=== PATIENT | female | born 1990 | race Caucasian/White ===

== ENCOUNTER → 2017-01-06 | Outpatient (REF) | payer OTHER ==
[~2017-01-06] MED LIST: /MOM400 PO; ACET50TA PO; AMPI500C OR; ANUS2.5C2 TOP; COLA50CA3 PO; FIORICET OR; IBUP600T26 PO; IBUP800T23 PO; LABE5INJ PO; PRENTAB9 PO; PROZ20CA OR; TRAZ100T OR; TYLE325T5 PO; ZOLO50TA OR
== END ==
LOC: M LAB REF 12:34
PROVIDERS: ATTEND Physician Assistant
DX: F50.9 Eating disorder, unspecified (principal); R53.1 Weakness

== ENCOUNTER → 2017-07-25 | Outpatient (REF) | payer OTHER ==
[~2017-07-25] MED LIST changes: +IBUP1TAB7 PO; -IBUP800T23 PO; +PROZ40CA PO
[2017-07-25 20:10] LABS: ANION GAP 5 MEQ/L (8-16); BLOOD UREA NITROGEN 14 MG/DL (7-18); CALCIUM LEVEL 9.3 MG/DL (8.5-10.1); CARBON DIOXIDE LEVEL 27 MEQ/L (21-32); CHLORIDE LEVEL 110 MEQ/L (98-107); CHOLESTEROL LEVEL 185 MG/DL (<200); CREATININE FOR GFR 0.75 MG/DL (0.55-1.02); GLOMERULAR FILTRATION RATE > 60.0 (>60); GLUCOSE, FASTING 89 MG/DL (70-105); POTASSIUM SERUM 4.1 MEQ/L (3.5-5.1); SODIUM LEVEL 142 MEQ/L (136-145); TRIGLYCERIDES LEVEL 121 MG/DL (<150)
== END ==
LOC: M SFHCPLAZ 15:32
PROVIDERS: ATTEND Family Medicine
DX: Z82.49 Family history of ischemic heart disease and other diseases of the circulatory system (principal); R03.0 Elevated blood-pressure reading, without diagnosis of hypertension

== ENCOUNTER → 2018-05-25 | Outpatient (CLI) | payer OTHER ==
[2018-05-25 12:33] LABS: ERYTHROCYTE SEDIMENTATION RATE 73 mm/hr (0-20)
[2018-05-26 14:14] LABS: ANGIOTENSIN 1 CONVERTING ENZYM 15 U/L (14-82); ANTI DOUBLE STRAND-DNA AB 2 IU/mL (0-9); ANTINUCLEAR ANTIBODIES DIRECT Negative (Negative)
== END ==
LOC: M LAB 10:44
DX: L98.9 Disorder of the skin and subcutaneous tissue, unspecified (principal)
CPT/HCPCS: 71046

== ENCOUNTER → 2020-06-12 | Outpatient (CLI) | payer OTHER, MEDICAID ==
[~2020-06-12] MED LIST changes: -/MOM400 PO; -ACET50TA PO; +MAPA500T17 PO; +MILK10SU PO
--- NOTE | 2020-06-18 07:25 | REPPI ---
LUMBAR SPINE SERIES: 5-VIEWS HISTORY: No known injury. Lumbar back pain. COMPARISON RADIOGRAPHS: None. FINDINGS: Lumbar vertebral body heights are preserved. Alignment is normal. There is mild disc space narrowing at L4-5. Other disc spaces are maintained. There is no evidence of spondylolysis or spondylolisthesis. Pedicles and posterior elements are intact. Facets are normally aligned. Psoas margins are symmetric. There are surgical sutures in the right lower quadrant. Sacrum and sacroiliac (SI) joints are intact. IMPRESSION: Mild disc space narrowing at L4-5. Otherwise negative lumbar spine radiographs. MTDD
== END ==
LOC: M PLAIMG 15:01
PROVIDERS: ATTEND Physician Assistant
DX: M54.42 Lumbago with sciatica, left side (principal)

== ENCOUNTER → 2020-07-18 | Outpatient (CLI) | payer OTHER ==
--- NOTE | 2020-07-18 15:44 | REP ---
INDICATION: OTH CHRONIC PAIN. COMPARISON: Comparison lumbar spine radiographs June 12, 2020.. TECHNIQUE: Sagittal and axial T1 and T2-weighted scans are acquired in the usual fashion with and without fat saturation. Sequences include spin echo, turbo spin-echo, and STIR imaging sequences. FINDINGS: There is straightening of the normal lumbar lordosis. Cortical and medullary bone signal intensity are preserved. Vertebral body heights are preserved. The tip of the conus medullaris is normal in position and appearance at L1. No extra vertebral abnormality is observed. The L1-2 and L2-3 disc levels are unremarkable. No disc protrusion, central canal stenosis, or foraminal narrowing is seen. At L3-4, there is mild degenerative disc space narrowing. Minimal diffuse disc bulging is present along its posterior margin. No spinal stenosis is seen. No neural foraminal narrowing is seen. At L4-5, there is mild degenerative narrowing and diffuse disc bulging. Facet hypertrophy and mild ligamentum flavum hypertrophy are noted. Canal size is borderline at L4-5. No focal disc protrusion is seen. Midline AP dimension of the thecal sac at L4-5 is 13 mm. There is no evidence of spondylolysis or spondylolisthesis. At L5-S1, there is minimal central disc bulging. Mild facet hypertrophy is present. No other abnormality. IMPRESSION: Mild disc bulging at L4-5 and L5-S1 with degenerative narrowing of the lower 3 lumbar discs. Facet hypertrophy at L4-5 and L5-S1. No orin spinal stenosis or foraminal narrowing is seen. No focal disc protrusion is appreciated. There is some straightening. <Electronically signed by Humberto Caldwell > 07/18/20 0104
== END ==
LOC: M PLARAD 13:30
PROVIDERS: ATTEND Physician Assistant
DX: M51.26 Other intervertebral disc displacement, lumbar region (principal); G89.29 Other chronic pain

== ENCOUNTER → 2020-07-31 | Outpatient (CLI) | payer OTHER ==
--- NOTE | 2020-08-02 00:34 | ECWPNPC ---
PATIENT NAME: RAYRAY CAMPO : 1990 GENDER: FEMALE VISIT DATE: 07/31/2020 DISCHARGE DATE: 07/31/20905 VISIT LOCKED DATE TIME: PHYSICIAN: NATALEE RAWLS PHYSICIAN PAGER NO: ACTIVE RESOURCE: NATALEE RAWLS REASON FOR APPOINTMENT 1. LOW BACK HISTORY OF PRESENT ILLNESS DEPRESSION SCREENING: PHQ-9 LITTLE INTEREST OR PLEASURE IN DOING THINGSMORE THAN HALF THE DAYS FEELING DOWN, DEPRESSED, OR HOPELESSMORE THAN HALF THE DAYS TROUBLE FALLING OR STAYING ASLEEP, OR SLEEPING TOO MUCHSEVERAL DAYS FEELING TIRED OR HAVING LITTLE ENERGYMORE THAN HALF THE DAYS POOR APPETITE OR OVEREATING SEVERAL DAYS FEELING BAD ABOUT YOURSELF-OR THAT YOU ARE A FAILURE OR HAVE LET YOURSELF OR YOUR FAMILY DOWN SEVERAL DAYS TROUBLE CONCENTRATING ON THINGS, SUCH READING THE NEWSPAPER OR WATCHING TELEVISION SEVERAL DAYS MOVING OR SPEAKING SO SLOWLY THAT OTHER PEOPLE COULD HAVE NOTICED. OR THE OPPOSITE- BEING SO FIDGETY OR RESTLESS THAT YOU HAVE BEEN MOVING AROUND A LOT MORE THAN USUALNOT AT ALL THOUGHTS THAT YOU WOULD BE BETTER OFF , OR OF HURTING YOURSELF IN SOME WAY?NOT AT ALL TOTAL SCORE:10 INTERPRETATIONMODERATE DEPRESSION PHQ-2 (2015 EDITION) LITTLE INTEREST OR PLEASURE IN DOING THINGS?MORE THAN HALF THE DAYS FEELING DOWN, DEPRESSED, OR HOPELESS?MORE THAN HALF THE DAYS TOTAL SCORE4 GENERAL: 30-YEAR-OLD FEMALE REFERRED BY [facility] TO EVALUATE CHRONIC LOW BACK PAIN. STATES LOW BACK PAIN BEGAN WITH APPROXIMATELY 6 YEARS AGO. SHE DIDN'T SEEK MEDICAL ATTENTION UNTIL 1 YEAR AGO. SHE WAS STARTED ON GABAPENTIN 600 MG 3 TIMES A DAY AND THIS WAS HELPFUL INITIALLY. CONTINUES ON GABAPENTIN 600 MG 3 TIMES A DAY BUT FEELS IT IS NOT HELPING ANYMORE. CURRENTLY HAVING MEDICATION ADJUSTMENTS FOR ANXIETY AND DEPRESSION WITH PRIMARY CARE. DENIES SUICIDAL IDEATIONS. HAS MULTIPLE SCABBED RED PAPULES ON HER FACE AND TRUNK AND PRIMARY CARE IS ACTIVELY TREATING THIS. PAIN IS LOCATED ACROSS LOW BACK. PAIN IS AGGRAVATED WITH WALKING OR STANDING. REPORTS NIGHTTIME AWAKENINGS DUE TO LOW BACK PAIN WHEN SHE REPOSITIONS. DENIES BOWEL OR BLADDER INCONTINENCE. STATES LEGS FEEL VERY HEAVY IF SHE IS WALKING. STATES SHE DOES NOT WANT NARCOTIC PAIN MEDICATIONS SHE HAS A HISTORY OF OPIATE ABUSE IN THE PAST. REVIEWED MRI OF THE LS-SPINE AND DISCUSSED TREATMENT OPTIONS. DUE TO THE FACT THAT SHE HAS MULTIPLE RED RAISED/SCABBED LESIONS ON HER LOWER BACK ,INJECTION THERAPY WOULD NOT BE POSSIBLE. DISCUSSED WALKING PROGRAM TO IMPROVE ACTIVITY TOLERANCE AND TO REDUCE STRESS. PATIENT SEEMS VERY MOTIVATED TO GET BETTER.- - -. FALL RISK SCREENING: SCREENING :ONE FALL WITH INJURY IN THE PAST YEAR SCRAPPED KNEE DID NOT SEEK MEDICAL ATTENTION. PAIN SCREENING: PATIENT HAS A COMPLAINT OF ACUTE OR CHRONIC PAIN :YES LOCATION OF PAIN: LOW BACK, BILATERAL LEGS INTENSITY OF PAIN (SCALE OF 1 TO 10):7 WHAT DOES YOUR PAIN FEEL LIKE:STABBING, ACHING DURATION:CONTINOUS, AWAKENS FROM SLEEP PAIN IS INCREASED BY:ACTIVITIES, PROLONGED STANDING PLAN/GOALS/TREATMENT/INTERVENTION/FOLLOW UP:SEE PLAN NURSING NOTE: - - -. PAIN CENTER INTAKE QUESTIONS: DO YOU HAVE A HISTORY OF MRSA? :NO DO YOU TAKE A BLOOD THINNERS? :NO DO YOU HAVE ANY BLEEDING DISORDERS? :NO ANY NEW NUMBNESS OR WEAKNESS IN YOUR LEGS OR ARMS? :YES BILATERAL LEGS REPORTED NUMBNESS AN FEELING OF HEAVINESS. ANY PACEMAKER,DEFIBRILLATOR, OR DORSAL COLUMN STIMULATOR? :NO DO YOU HAVE ANY RASHES OR OPEN SORES? :YES PICKING RELATED TO OCD ARE YOU ALLERGIC TO IV DYE? :NO ARE YOU DIABETIC? :NO ANY NEW PROBLEMS WITH YOUR MEDICATIONS? :NO HAVE YOU RECEIVED A VACCINE IN THE PAST 30 DAYS? :NO DO YOU PLAN TO RECEIVE A VACCINE IN THE NEXT 21 DAYS? :NO DO YOU NEED ANY PRESCRIPTION? :NO DO YOU TAKE ANY IMMUNOSUPPRESSIVE MEDICATIONS? :NO CURRENT MEDICATIONS TAKING IMITREX 25 MG TABLET 1 TABLET AT LEAST 2 HOURS BETWEEN DOSES NEEDED ORALLY TWICE A DAY TAKING VENTOLIN HFA 108 (90 BASE) MCG/ACT AEROSOL SOLUTION 2 PUFFS NEEDED INHALATION EVERY 6 HRS TAKING IBUPROFEN 600 MG TABLET 1 TABLET WITH FOOD OR MILK NEEDED ORALLY THREE TIMES DAILY NEEDED TAKING FLUVOXAMINE MALEATE 100 MG TABLET 1 TABLET AT BEDTIME ORALLY TWICE DAILY TAKING GABAPENTIN 600 MG TABLET 1 CAPSULE ORALLY THREE TIMES DAILY TAKING MELOXICAM 10 MG CAPSULE 1 TABLET ORALLY TWICE DAILY NEEDED TAKING BUSPIRONE HCL 10 MG TABLET 1 TABLET ORALLY TWICE A DAY NEEDED TAKING MECLIZINE HCL 25 MG TABLET 1 TABLET NEEDED ORALLY ONCE A DAY TAKING WELLBUTRIN XL 150 MG TABLET EXTENDED RELEASE 24 HOUR 1 TABLET IN THE MORNING ORALLY ONCE A DAY TAKING XANAX 0.25 MG TABLET 1 TABLET ORALLY TWICE A DAY NEEDED PRIOR TO MRI (MDD: 2) NOT-TAKING CEPHALEXIN 500 MG CAPSULE 1 CAPSULE ORALLY EVERY 12 HRS NOT-TAKING CIPRODEX 0.3-0.1 % SUSPENSION 4 DROPS INTO AFFECTED EAR OTIC TWICE A DAY NOT-TAKING CLONAZEPAM 0.5 MG TABLET 1 TABLET ORALLY TWICE A DAY NEEDED FOR PANIC ATTACKS NOT-TAKING DIFLUCAN 150 MG TABLET 1 TABLET ORALLY ONE TIME, MAY REPEAT IN 3 DAYS NOT-TAKING TIZANIDINE HCL 2 MG CAPSULE 1 TABLET NEEDED ORALLY THREE TIMES A DAY NOT-TAKING FLUTICASONE PROPIONATE 50 MCG/ACT SUSPENSION 1 SPRAY IN EACH NOSTRIL NASALLY BID NOT-TAKING FLUVOXAMINE MALEATE ER 100 MG CAPSULE EXTENDED RELEASE 24 HOUR 1 CAPSULE AT BEDTIME ORALLY ONCE A DAY NOT-TAKING FLUCONAZOLE 150 MG TABLET 1 TABLET ORALLY ONE DOSE NOT-TAKING ZYRTEC ALLERGY 10 MG CAPSULE 1 CAPSULE ORALLY ONCE A DAY NOT-TAKING AMOXICILLIN-POT CLAVULANATE 875-125 MG TABLET 1 TABLET ORALLY EVERY 12 HRS NOT-TAKING FLUVOXAMINE MALEATE 50 MG TABLET 1 TABLET AT BEDTIME (WITH 100MG FOR TOTAL OF 150MG) ORALLY ONCE A DAY MEDICATION LIST REVIEWED AND RECONCILED WITH THE PATIENT PAST MEDICAL HISTORY DEPRESSION SMOKER, UNMOTIVATED TO QUIT ANXIETY ALLERGIES ENVIRONMENTAL SURGICAL HISTORY APPENDECTOMY 2009 EXPLORATORY LAPAROTOMY; EVAL FOR FERTILITY 2009 TONSILS AND ADENOIDS CHILD FAMILY HISTORY FATHER: , COPD, OF PERFORATED COLON MOTHER: ALIVE, CAD, COPD, RHEUMATOID ARTHRITIS, DIAGNOSED WITH UNSPECIFIED HEART DISEASE MATERNAL GRAND FATHER: , OF [place], THROAT AND LUNG CA MATERNAL GRAND MOTHER: , OF [place]- BONE CANCER BROTHER: , HALF BROTHER- HIV/AIDS, FROM [place] SISTER: ALIVE, UNKNOWN 3 BROTHER(S) , 2 SISTER(S) . 1 SON(S) , 1 DAUGHTER(S) - HEALTHY. DENIES ANY SKIN CANCER HX \\N\\NMATERNAL COUSIN- LUPUS\\N\\N1 STILL 2011. SOCIAL HISTORY GENERAL: TOBACCO USE ARE YOU A:CURRENT SMOKER ARE YOU INTERESTED IN QUITTING?THINKING ABOUT QUITTING ARRANGEREFERRAL FAXED TO [facility] SMOKER'S QUITLINE (REFER TO QUIT PROGRAM) HOW MANY CIGARETTES A DAY DO YOU SMOKE?6-10 HOW SOON AFTER YOU WAKE UP DO YOU SMOKE YOUR FIRST CIGARETTE?6-30 MIN HOW OFTEN DO YOU SMOKE CIGARETTES?EVERY DAY PATIENT COUNSELED ON THE DANGERS OF TOBACCO USE AND URGED TO QUIT:07/31/2020 SMOKING CESSATION INFORMATION GIVEN07/31/2020 VAPORNO E-CIGARETTENO LATEX QUESTIONNAIRE LATEX ALLERGY : HAVE YOU EVER DEVELOPED ANY TYPE OF REACTION AFTER HANDLING LATEX PRODUCTS SUCH RUBBER GLOVES, CONDOMS, DIAPHRAGMS, BALLOONS, SOCKS, OR UNDERWEAR?NO LATEX ALLERGY : HAVE YOU EVER DEVELOPED ANY TYPE OF REACTION DURING OR AFTER DENTAL APPOINTMENT, VAGINAL/RECTAL EXAMINATION, SURGICAL PROCEDURE, OR ANY OTHER EXPOSURE?NO DATE ASKED : 11/30/2018 LATEX RISK : HAVE YOU EVER HAD ANY DIFFICULTY BREATHING OR HIVES AFTER EATING OR HANDLING ANY FRUITS, OR VEGETABLES; SUCH KIWI, BANANAS, STONE FRUITS, OR CHESTNUTSNO LATEX RISK : DO YOU HAVE A PREVIOUS PERSONAL HISTORY OF MORE THAN NINE SURGERIES, SPINA BIFIDA, OR REPEATED CATHERIZATIONS? NO LATEX RISK : ARE YOU FREQUENTLY EXPOSED TO LATEX PRODUCTS IN YOUR OCCUPATION?NO ALCOHOL SCREENING DID YOU HAVE A DRINK CONTAINING ALCOHOL IN THE PAST YEAR?NO POINTS0 INTERPRETATIONNEGATIVE RECREATIONAL DRUG USE DRUG USE?YES CAFFEINE CAFFEINE USE?YES 3 CANS OF SODA/DAY SEXUAL HX HAD SEX IN THE LAST 12 MONTHS (VAGINAL, ORAL, OR ANAL)?YES WITHMEN ONLY USE PROTECTION?NO LMP:07/13/2015 HAVE YOU EVER HAD AN STD?YES CHLAMYDIA?YES HIV / HEP-C SCREENING HIV TEST OFFERED TO PATIENT:YES DATE OFFERED:07/25/2017 TEST ACCEPTED:YES TENRIISM TENRIISM NO RESTORATIONISM BELIEFS THAT WOULD IMPACT HEALTH CARE. LANGUAGE LANGUAGES SPOKEN:ANGUILLAN EDUCATION LEVEL OF EDUCATION:NOT FINISHED HIGH SCHOOL 11TH GRADE LEARNING BARRIERS / SPECIAL NEEDS CHANGE FROM LAST VISIT?NO BARRIERS TO LEARNING?NO HEARING IMPAIRED?NO VISION IMPAIRED?YES COGNITIVELY IMPAIRED?NO :CORRECTIVE LENSES READINESS TO LEARN?YES LEARNING PREFERENCES?YES :DEMONSTRATION/VERBAL INSTRUCTION LEARNING CAPABILITIES PRESENT?YES EMOTIONAL BARRIERS?NO SPECIAL DEVICES?NO FOOT ROENTGENOLOGIST NEEDED?NO DOMESTIC VIOLENCE DO YOU FEEL SAFE IN YOUR ENVIRONMENT?YES OCCUPATION: UNEMPLOYED. DIET: REGULAR. EXERCISE: WALKS. MARITAL STATUS: . OTHERS AT HOME: DAUGHTER, SON. ADVANCE DIRECTIVE ADVANCE DIRECTIVE DISCUSSED WITH PATIENT:YES DENIES ADVANCED DIRECTIVES, AND ASSISTANCE COMPLETING AT THIS TIME. HOSPITALIZATION/MAJOR DIAGNOSTIC PROCEDURE HOSPITALIZATION FOR SURGERIES ONLY REVIEW OF SYSTEMS CONSTITUTIONAL: ANY RECENT FEVER NO . CHILLS NO . WEIGHT CHANGE OF UNKNOWN REASONS NO . GASTROENTEROLOGY: NEW UNEXPLAINABLE CHANGES IN BOWEL CONTROL NO . CONSTIPATION NO . GENITOURINARY: ANY NEW CHANGE IN BLADDER CONTROL? NO . NEUROLOGY: NEW ONSET DIZZINESS OR NEUROLOGICAL CHANGES NOT MENTIONED NO . NEW NUMBNESS OR PAIN PATTERNS NOT MENTIONED AND PERTINENT TO TODAY'S VISIT NO . CARDIOLOGY: NEW CHEST PRESSURE NO . NEW CHEST PAIN NO . RESPIRATORY: UNEXPLAINABLE COUGH NO . NEW SHORTNESS OF BREATH NO . VITAL SIGNS WT 194.2 LBS, HT 64 IN, BMI 33.33 INDEX, BP 162/97 MM HG, HR 96 /MIN, RR 18 /MIN, TEMP 95.0 F, OXYGEN SAT % 96%, SAFE IN ENV? (Y/N) YES, NA INITIALS AW 0830, REVIEWED BY: FLORINDA LU RN BSN. EXAMINATION GENERAL EXAMINATION: GENERALNO ACUTE DISTRESS, WELL NOURISHED AND HYDRATED. PSYCHAPPROPRIATE MOOD AND AFFECT . FACE:MULTIPLE RED PAPULES OVER FACE. . LUNGS:CLEAR TO AUSCULTATION BILATERALLY, NO WHEEZES, RHONCHI, RALES. HEART:NO MURMURS, REGULAR RATE AND RHYTHM. MUSCULOSKELETAL:NORMAL RANGE OF MOTION.MST 5/5 BILAT. UPPER/LOWER EXTREMITIES. LUMBAR:MULTIPLE RED RAISED SCABBED LESIONS OVER ENTIRE BACK REGION SPECIFIC POINT TENDERNESS NOTED OVER BILATERAL SIJ REGION . DIAGNOSTIC TESTS REVIEWEDMRI LS-SPINE 06/2020 . ASSESSMENTS SACROILIITIS - M46.1 (PRIMARY) TREATMENT SACROILIITIS NOTES: PATIENT WAS ADVISED TO START A WALKING PROGRAM TO STRENGTHEN LUMBAR PARASPINAL MUSCLES AND IMPROVE MOBILITY. THEY WERE ADVISED THAT THIS WILL IMPROVE WEIGHT LOSS AND ALSO DEPRESSION/FIBROMYALGIA SYMPTOMS. ADVISED TO WALK 10 MINUTES EVERY OTHER DAY ON A FLAT SURFACE. EMPHASIZED THE IMPORTANCE OF DOING THIS CONSISTANTLY AND NOT SPORATICALLY TO AVOID INJURY. OTHERS NOTES: 07/31/20 0830 PATIENT GIVEN WALK IN INFORMATION FOR [facility], PATIENT CURRENTLY SEES PCP FOR PSYCHOTROPIC MEDICATIONS, NURSE DISCUSSED USING MENTAL HEALTH SERVICES AN ADDITIONAL RESOURCE. JEANETTE LU RN BSN. PROCEDURE CODES FA211 ESTABILISHED PATIENT [facility] CHARGE DISPOSITION & COMMUNICATION FOLLOW UP 3 MONTHS (REASON: LOW BACK PAIN/FOLLOW-UP AFTER INITIAL EVALUATION) ELECTRONICALLY SIGNED BY ADÁN HARPER ON 08/01/2020 AT 02:50 PM EST DISCLAIMER : THIS IS A VISIT SUMMARY EXTRACTED FROM THE [employer] CHART. IT IS NOT A COPY OF THE [employer] PROGRESS NOTE. MOR
== END ==
LOC: M PAIN 08:30
PROVIDERS: ATTEND Nurse Practitioner Family
DX: M46.1 Sacroiliitis, not elsewhere classified (principal); F32.9 Major depressive disorder, single episode, unspecified; F17.210 Nicotine dependence, cigarettes, uncomplicated; F41.9 Anxiety disorder, unspecified; Z79.899 Other long term (current) drug therapy; J30.9 Allergic rhinitis, unspecified

== ENCOUNTER 2021-01-24 14:46 | Emergency (ER) | payer OTHER ==
[~2021-01-24] VITALS: Ht 162.6 cm; Wt 92.2 kg
[2021-01-24] MEDS ORDERED: FLUO90CA2 PO (14:53)
[2021-01-24] MEDS ORDERED: BUSP10TA PO (14:53)
[2021-01-24] MEDS ORDERED: NS 1,000 ML IV ONE (15:40)
[2021-01-24] MEDS ORDERED: ACETAMINOPHEN 500 MG TAB PO ONE (15:40)
[2021-01-24 16:27] LABS: BASO % 0.4 % (0.0-1.0); EOS # 0.2 10^3/uL (0.0-0.5); EOS % 1.8 % (0.0-3.0); HEMATOCRIT 37.1 % (36.0-47.0); HEMOGLOBIN 11.3 g/dl (12.0-15.5); LYMPH % 17.4 % (24.0-44.0); MEAN CORPUSCULAR HEMOGLOBIN 25.6 pg (27.0-33.0); MEAN CORPUSCULAR HGB CONC 30.5 g/dl (32.0-36.5); MEAN CORPUSCULAR VOLUME 84.1 fl (80.0-96.0); MONO % 8.6 % (2.0-8.0); NEUTROPHILS # 8.1 10^3/uL (1.5-8.5); NEUTROPHILS % 71.5 % (36.0-66.0); PLATELET COUNT, AUTOMATED 331 10^3/uL (150-450); RED BLOOD COUNT 4.41 10^6/uL (4.00-5.40); WHITE BLOOD COUNT 11.3 10^3/uL (4.0-10.0)
[2021-01-24 17:07] LABS: ALBUMIN 3.6 GM/DL (3.2-5.2); ALT/SGPT 17 U/L (12-78); BILIRUBIN,DIRECT 0.1 MG/DL (0.0-0.2); BILIRUBIN,TOTAL 0.4 MG/DL (0.2-1.0); BLOOD UREA NITROGEN 11 MG/DL (7-18); CALCIUM LEVEL 9.2 MG/DL (8.5-10.1); CARBON DIOXIDE LEVEL 27 MEQ/L (21-32); CHLORIDE LEVEL 107 MEQ/L (98-107); CREATININE FOR GFR 0.54 MG/DL (0.55-1.30); GLOMERULAR FILTRATION RATE > 60.0 (>60); GLUCOSE, FASTING 81 MG/DL (70-100); HCG, SERUM QUANTITATIVE 43109 MIU/ML; POTASSIUM SERUM 3.8 MEQ/L (3.5-5.1); SODIUM LEVEL 140 MEQ/L (136-145); TOTAL PROTEIN 6.9 GM/DL (6.4-8.2)
--- NOTE | 2021-01-24 17:07 | REP ---
INDICATION: positive hcg, headache, h/o pre-eclampsia. COMPARISON: None. TECHNIQUE: Real-time sonographic evaluation of gravid uterus performed. FINDINGS: There is a single living intrauterine gestation. The estimated gestational age is 7 weeks 1 day based on a crown-rump length of 11 mm. The EDC is 09/11/2021. The heart rate is 140 beats per minute. There is no subchorionic hemorrhage. Cystic structure of the left ovary probably represents a corpus luteum 2.6 x 2.2 x 2.1 cm. There is no evidence of left ovarian torsion with duplex Doppler evaluation. IMPRESSION: Viable intrauterine gestation, heart rate 140 beats per minute, estimated gestational age 7 weeks 1 day. No subchorionic hemorrhage. <Electronically signed by Meng Westfall > 01/24/21 [id number]
[2021-01-24 17:11] VITALS: BP 148/78
== END 2021-01-24 17:34 | disposition home or self-care (01) ==
LOC: M ED 14:46
DX: O99.351 Diseases of the nervous system complicating pregnancy, first trimester (principal); G43.909 Migraine, unspecified, not intractable, without status migrainosus; R03.0 Elevated blood-pressure reading, without diagnosis of hypertension; O99.341 Other mental disorders complicating pregnancy, first trimester; F33.9 Major depressive disorder, recurrent, unspecified; F41.9 Anxiety disorder, unspecified; F42.9 Obsessive-compulsive disorder, unspecified; Z79.899 Other long term (current) drug therapy; O99.331 Smoking (tobacco) complicating pregnancy, first trimester; F17.210 Nicotine dependence, cigarettes, uncomplicated; Z3A.01 Less than 8 weeks gestation of pregnancy

== ENCOUNTER → 2021-02-23 | Outpatient (REF) | payer OTHER ==
[~2021-02-23] MED LIST changes: +BUSP10TA PO; +FLUO90CA2 PO
[2021-02-23 13:57] LABS: HEMATOCRIT 36.9 % (36.0-47.0); HEMOGLOBIN 11.3 g/dl (12.0-15.5); MEAN CORPUSCULAR HEMOGLOBIN 26.8 pg (27.0-33.0); MEAN CORPUSCULAR HGB CONC 30.6 g/dl (32.0-36.5); MEAN CORPUSCULAR VOLUME 87.4 fl (80.0-96.0); PLATELET COUNT, AUTOMATED 290 10^3/uL (150-450); RED BLOOD COUNT 4.22 10^6/uL (4.00-5.40); WHITE BLOOD COUNT 9.4 10^3/uL (4.0-10.0)
[2021-02-23 14:58] LABS: ALT/SGPT 14 U/L (12-78); BILIRUBIN,TOTAL 0.3 MG/DL (0.2-1.0); CREATININE FOR GFR 0.63 MG/DL (0.55-1.30); CREATININE,RANDOM URINE 84.1 MG/DL; GLOMERULAR FILTRATION RATE > 60.0 (>60); LDH LACTATE DEHYDROGENASE 136 U/L (84-246); TOTAL PROTEIN,RANDOM URINE 9.5 MG/DL (0.0-12.0); URIC ACID 3.2 MG/DL (2.6-6.0)
[2021-02-23 15:19] LABS: HEPATITIS C VIRUS ABY INDEX < 0.0 INDEX (<0.8); HIV 1&2 SCREEN CENTAUR NEGATIVE (NEGATIVE)
[2021-02-23 15:48] LABS: CHLAMYDIA DNA AMPLIFICATION NEGATIVE (NEGATIVE); GC DNA AMPLIFICATION NEGATIVE (NEGATIVE)
== END ==
LOC: M PLALAB 11:10
PROVIDERS: ATTEND Advanced Practice Midwife
DX: O10.011 Pre-existing essential hypertension complicating pregnancy, first trimester (principal)

== ENCOUNTER 2021-04-06 17:26 | Emergency (ER) | payer OTHER ==
[~2021-04-06] VITALS: Ht 162.6 cm; Wt 91.4 kg
[2021-04-06] MEDS ORDERED: LABE100T4 PO (18:51)
[2021-04-06 19:00] VITALS: BP 164/83
[2021-04-06] MEDS ORDERED: ONDA-83 PO (19:01)
[2021-04-06] MEDS ORDERED: ACET-683 PO (19:01)
[2021-04-06] MEDS ORDERED: GABA-1171 PO (19:01)
[2021-04-06] MEDS ORDERED: NS 1,000 ML IV ONE (19:35)
[2021-04-06 20:13] LABS: BASO % 0.2 % (0.0-1.0); EOS # 0.1 10^3/uL (0.0-0.5); EOS % 0.5 % (0.0-3.0); HEMATOCRIT 38.5 % (36.0-47.0); HEMOGLOBIN 12.5 g/dl (12.0-15.5); LYMPH # 2.3 10^3/uL (1.5-5.0); LYMPH % 23.2 % (24.0-44.0); MEAN CORPUSCULAR HEMOGLOBIN 28.6 pg (27.0-33.0); MEAN CORPUSCULAR HGB CONC 32.5 g/dl (32.0-36.5); MEAN CORPUSCULAR VOLUME 88.1 fl (80.0-96.0); MONO % 10.5 % (2.0-8.0); NEUTROPHILS # 6.5 10^3/uL (1.5-8.5); NEUTROPHILS % 65.3 % (36.0-66.0); PLATELET COUNT, AUTOMATED 275 10^3/uL (150-450); RED BLOOD COUNT 4.37 10^6/uL (4.00-5.40); WHITE BLOOD COUNT 9.9 10^3/uL (4.0-10.0)
[2021-04-06] MEDS ORDERED: METOCLOPRAMIDE INJ 10MG/2ML VIAL (J2765 PER 1) IV ONE (20:20)
[2021-04-06 20:35] LABS: ALBUMIN 3.1 GM/DL (3.2-5.2); ALT/SGPT 18 U/L (12-78); BILIRUBIN,DIRECT < 0.1 MG/DL (0.0-0.2); BILIRUBIN,TOTAL 0.3 MG/DL (0.2-1.0); BLOOD UREA NITROGEN 8 MG/DL (7-18); CALCIUM LEVEL 8.9 MG/DL (8.5-10.1); CARBON DIOXIDE LEVEL 24 MEQ/L (21-32); CHLORIDE LEVEL 108 MEQ/L (98-107); CREATININE FOR GFR 0.62 MG/DL (0.55-1.30); GLOMERULAR FILTRATION RATE > 60.0 (>60); GLUCOSE, FASTING 87 MG/DL (70-100); LIPASE 104 U/L (73-393); POTASSIUM SERUM 3.7 MEQ/L (3.5-5.1); SODIUM LEVEL 140 MEQ/L (136-145); TOTAL PROTEIN 6.9 GM/DL (6.4-8.2)
[2021-04-06] MEDS ORDERED: REGL10TA6 PO (22:21)
== END 2021-04-06 22:51 | disposition home or self-care (01) ==
LOC: M ED 17:26
DX: O99.612 Diseases of the digestive system complicating pregnancy, second trimester (principal); K52.9 Noninfective gastroenteritis and colitis, unspecified; Z3A.17 17 weeks gestation of pregnancy; Z79.899 Other long term (current) drug therapy; O99.332 Smoking (tobacco) complicating pregnancy, second trimester; F17.210 Nicotine dependence, cigarettes, uncomplicated
CPT/HCPCS: 80047; 80048; 80076; 81001; 83690; 85025; 96361; 96374; 99284; J2765

== ENCOUNTER → 2021-04-13 | Outpatient (CLI) | payer OTHER ==
[~2021-04-13] MED LIST changes: +ACET-683 PO; +GABA-1171 PO; +LABE100T4 PO; +ONDA-83 PO; +PEPC40TA12 PO; +PROZ10CA7 PO; +REGL10TA6 PO
== END ==
LOC: M WHC 07:51
PROVIDERS: ATTEND Advanced Practice Midwife
DX: Z34.92 Encounter for supervision of normal pregnancy, unspecified, second trimester (principal); Z3A.17 17 weeks gestation of pregnancy

== ENCOUNTER → 2021-05-14 | Outpatient (CLI) | payer OTHER ==
[~2021-05-14] MED LIST changes: -PEPC40TA12 PO; -PROZ10CA7 PO
--- NOTE | 2021-05-14 13:45 | REP ---
INDICATION: FOLLOW UP. Essential hypertension. COMPARISON: Comparison study April 13, 2021. TECHNIQUE: Transabdominal obstetric sonography. FINDINGS: Scanning through the gravid uterus demonstrates a viable single intrauterine gestation in transverse lie. motion is observed and heart rate is recorded at 169 beats per minute. A posterior placenta is seen, grade 1, without evidence of placenta previa. Closed cervical length is measured at 4.0 cm transabdominally. No extrauterine abnormality is observed. Amniotic fluid is subjectively normal. The following anatomic structures are identified today and felt to be unremarkable: cranium and intracranial contents, face and profile, nose and lips, lungs, diaphragm, left-sided stomach, abdominal wall cord insertion, kidneys and urinary bladder, upper and lower extremities. spine is less than optimally seen today but was observed previously. Four-chamber heart and left ventricular outflow tract view views are less than optimally seen today. Right ventricular outflow tract view was observed previously. Biometry chart: BPD 5.1 cm, 21 weeks 3 days Head circumference 20.0 cm, 22 weeks 1 day Abdominal circumference 17.7 cm, 22 weeks 4 days Femur length 3.9 cm, 22 weeks 3 days Humeral length 3.6 cm, 22 weeks 3 days HC AC ratio normal 1.13 Cephalic index 0.69 (0.70-0.86) Estimated weight 507 g, 1 lb 1 oz, 26 percentile for 22 weeks 6 days IMPRESSION: Viable single intrauterine gestation at 22 weeks 2 days by today's composite sonographic criteria. AMERICA by today's sonography September 15, 2021. No complication identified. Expected gestational age estimate based on known AMERICA of 11 September 2021 is 22 weeks 6 days. Appropriate interval growth. Four-chamber heart and left ventricular outflow tract view still less than optimally seen. <Electronically signed by Humberto Caldwell > 05/14/21 [id number]
== END ==
LOC: M WHC 08:44
PROVIDERS: ATTEND Obstetrics & Gynecology
DX: Z36.2 Encounter for other antenatal screening follow-up (principal); O10.012 Pre-existing essential hypertension complicating pregnancy, second trimester; Z3A.22 22 weeks gestation of pregnancy

== ENCOUNTER → 2021-06-19 | Outpatient (CLI) | payer OTHER ==
--- NOTE | 2021-06-19 09:57 | REP ---
INDICATION: F/U ANATOMY. FOLLOW-UP FOUR-CHAMBER HEART AND LEFT VENTRICULAR OUTFLOW TRACT COMPARISON: 05/14/2021 TECHNIQUE: Transabdominal scanning FINDINGS: Multiple ultrasonographic images of the gravid uterus shows a single living intrauterine gestation in the cephalic presentation. Doppler interrogation of the heart shows a heart rate of 125 beats per minute. The placenta is posterior and not low-lying. The cervix measures 4 point cm in length and is closed. The subjective amniotic fluid volume is within normal limits. The calculated amniotic fluid index is 12.5 within expected range 9.4 to 22.8. BPD: 6.8 cm 27 weeks 3 days HC: 25.5 cm 27 weeks 5 days AC: 23.9 cm 28 weeks 2 days FL: 5.3 cm 28 weeks 1 day The estimated weight is 1176 g which is at the 42nd percentile for a 28 week 0 day gestational age. That was based on the patient's 1st ultrasound exam rather than today's biometry. The ventricular outflow tacks were seen to be unremarkable today. Four-chamber heart view was still suboptimal. IMPRESSION: Single living intrauterine gestation as described above with an estimated gestational age of 27 weeks 4 days via composite criteria and an estimated date of delivery of 09/14/2021 by today's exam. Additional follow-up recommended for four-chamber heart view. <Electronically signed by Kirill Pettit > 06/19/21 0992
== END ==
LOC: M WHC 09:03
PROVIDERS: ATTEND Specialist
DX: Z34.82 Encounter for supervision of other normal pregnancy, second trimester (principal)

== ENCOUNTER → 2021-06-30 | Outpatient (CLI) | payer OTHER ==
[2021-06-30 14:27] LABS: HEMATOCRIT 32.6 % (36.0-47.0); HEMOGLOBIN 10.5 g/dl (12.0-15.5); MEAN CORPUSCULAR HEMOGLOBIN 31.3 pg (27.0-33.0); MEAN CORPUSCULAR HGB CONC 32.2 g/dl (32.0-36.5); PLATELET COUNT, AUTOMATED 323 10^3/uL (150-450); RED BLOOD COUNT 3.36 10^6/uL (4.00-5.40); WHITE BLOOD COUNT 13.1 10^3/uL (4.0-10.0)
[2021-06-30 17:03] LABS: GC DNA AMPLIFICATION NEGATIVE (NEGATIVE)
== END ==
LOC: M PLALAB 09:40
PROVIDERS: ATTEND Specialist
DX: Z34.82 Encounter for supervision of other normal pregnancy, second trimester (principal)

== ENCOUNTER → 2021-07-07 | Outpatient (CLI) | payer OTHER ==
--- NOTE | 2021-07-07 17:13 | REP ---
INDICATION: PREG, F/U ANATOMY- HEART. COMPARISON: 06/19/2021. TECHNIQUE: Real-time sonographic evaluation of the gravid uterus performed. FINDINGS: Estimated gestational age is30 weeks 4 days, EDC 09/11/2021. Today's measurements indicate appropriate growth. Presentation: Cephalic Placenta left, grade 2, without evidence of placenta previa. heart rate is recorded at 122 beats per minute. Amniotic fluid is subjectively normal. JESUS ALBERTO 9.7, normal 8.9-23.6. SD ratio umbilical artery 3.77, normal 4.03. RI 0.74, normal 0.51-0.76. Closed cervical length is measured at 4.0 cm. Biometry chart: BPD: 74 mm, 29 weeks 4 days, 30th percentile. HC: 275 mm, 30 weeks 1 days, 43rd percentile AC: 275 mm, 31 weeks 4 days, 66th percentile Femur length: 56 mm, 29 weeks 4 days, 30th percentile HC to AC ratio: 1.00, normal range 0.97-1.16. Estimated weight: 1619g, 41st percentile. anatomy: Four-chamber heart and ventricular outflow tracts not well visualized. stomach, kidneys, bladder, and three-vessel cord are visualized and are grossly unremarkable. There appears to be a nuchal cord. IMPRESSION: Viable single intrauterine gestation as above. <Electronically signed by Meng Westfall > 07/07/21 [id number]
== END ==
LOC: M RAD 15:54
PROVIDERS: ATTEND Advanced Practice Midwife
DX: O10.013 Pre-existing essential hypertension complicating pregnancy, third trimester (principal); O28.3 Abnormal ultrasonic finding on antenatal screening of mother; Z3A.30 30 weeks gestation of pregnancy

== ENCOUNTER → 2021-07-29 | Outpatient (CLI) | payer OTHER ==
--- NOTE | 2021-07-30 08:23 | REP ---
INDICATION: PREG, GROWTH SCAN COMPARISON: 07/07/2021 TECHNIQUE: Transabdominal obstetrical ultrasound with color Doppler evaluation. FINDINGS: Examination demonstrates a single live intrauterine in cephalic presentation. motion is identified by technologist. Placenta is noted left lateral and grade 1 without evidence for placenta previa or abruption. Amniotic fluid volume is normal. Cervix appears closed. No evidence for nuchal cord. Selected gestational age: 33 weeks 5 days with AMERICA 09/11/2021. Gestational age by current measurements 33 weeks 1 day with AMERICA 09/15/2021. FHR equals 140 beats per minute. BPD: 8.0 cm at 32 weeks 1 day HC: 30.0 cm at 33 weeks 2 days AC: 30.1 cm at 34 weeks 0 days FL: 6.6 cm at 33 weeks 6 days HL: 5.5 cm at 32 weeks 0 days HC/AC: 1.00 Estimated weight 2263 grams (44thpercentile). JESUS ALBERTO: 13.0 cm Umbilical artery SD ratio: 3.18 IMPRESSION: Single live advanced gestation in cephalic presentation demonstrating appropriate interval growth. Amniotic fluid volume is normal. <Electronically signed by Bala Mooney > 07/30/21 [id number]
== END ==
LOC: M RAD 16:49
PROVIDERS: ATTEND Specialist
DX: Z36.2 Encounter for other antenatal screening follow-up (principal); O10.013 Pre-existing essential hypertension complicating pregnancy, third trimester; Z3A.33 33 weeks gestation of pregnancy

== ENCOUNTER → 2021-08-13 | Outpatient (CLI) | payer OTHER ==
[~2021-08-13] MED LIST changes: +PEPC40TA12 PO; +PROZ10CA7 PO
[2021-08-13 14:55] LABS: HEMATOCRIT 30.9 % (36.0-47.0); HEMOGLOBIN 10.1 g/dl (12.0-15.5); MEAN CORPUSCULAR HEMOGLOBIN 30.8 pg (27.0-33.0); MEAN CORPUSCULAR HGB CONC 32.7 g/dl (32.0-36.5); MEAN CORPUSCULAR VOLUME 94.2 fl (80.0-96.0); PLATELET COUNT, AUTOMATED 328 10^3/uL (150-450); RED BLOOD COUNT 3.28 10^6/uL (4.00-5.40); WHITE BLOOD COUNT 12.4 10^3/uL (4.0-10.0)
[2021-08-13 15:07] LABS: CREATININE,RANDOM URINE 35.8 MG/DL; TOTAL PROTEIN,RANDOM URINE 13.3 MG/DL (0.0-12.0)
[2021-08-13 15:23] LABS: ALT/SGPT 18 U/L (12-78); BILIRUBIN,TOTAL 0.2 MG/DL (0.2-1.0); CREATININE FOR GFR 0.56 MG/DL (0.55-1.30); GLOMERULAR FILTRATION RATE > 60.0 (>60); LDH LACTATE DEHYDROGENASE 137 U/L (84-246); URIC ACID 3.2 MG/DL (2.6-6.0)
== END ==
LOC: M PLALAB 12:48
PROVIDERS: ATTEND Advanced Practice Midwife
DX: O10.013 Pre-existing essential hypertension complicating pregnancy, third trimester (principal)

== ENCOUNTER → 2021-08-13 | Outpatient (REF) | payer OTHER | LOC: M SFHCWAGY 16:48 | PROVIDERS: ATTEND Advanced Practice Midwife | DX: Z36.85 Encounter for antenatal screening for Streptococcus B (principal); O10.013 Pre-existing essential hypertension complicating pregnancy, third trimester; Z3A.00 Weeks of gestation of pregnancy not specified ==

== ENCOUNTER → 2021-08-17 | Outpatient (CLI) | payer OTHER ==
[~2021-08-17] MED LIST changes: -PEPC40TA12 PO; -PROZ10CA7 PO
--- NOTE | 2021-08-17 08:47 | REP ---
INDICATION: F/U ANATOMY GROWTH COMPARISON: 07/29/2021 TECHNIQUE: Transabdominal obstetrical ultrasound with color Doppler evaluation. FINDINGS: Examination demonstrates a single live intrauterine in cephalic presentation. motion is identified by technologist. Placenta is noted left lateral and grade 3 without evidence for placenta previa or abruption. Amniotic fluid volume is normal. Cervix measures 3.6 cm in length and appears closed.. Selected gestational age: 36 weeks 3 days with AMERICA 09/11/2021. Gestational age by current measurements 35 weeks 1 day with AMERICA 09/20/2021. FHR equals 138 beats per minute. Estimated weight 2732 grams (39thpercentile). JESUS ALBERTO: 24.2 cm (7.6-24.7) Umbilical artery SD ratio: 2.45 (1.62-3.48) IMPRESSION: Single live intrauterine in cephalic presentation demonstrating appropriate estimated weight. <Electronically signed by Bala Mooney > 08/17/21 0888
== END ==
LOC: M WHC 07:29
PROVIDERS: ATTEND Advanced Practice Midwife
DX: Z36.2 Encounter for other antenatal screening follow-up (principal); O10.013 Pre-existing essential hypertension complicating pregnancy, third trimester; Z3A.35 35 weeks gestation of pregnancy

== ENCOUNTER 2021-08-22 16:57 | Inpatient (IN) | payer OTHER ==
[~2021-08-22] VITALS: Ht 162.6 cm; Wt 97.7 kg
[2021-08-22] VITALS (7 sets, daily range): BP systolic 121–154; BP diastolic 58–89
--- OUTSIDE RECORDS SUMMARY | 2021-08-22 16:59 | CCD ---
Author Author [facility] Organization [facility] Address Unknown Phone Unavailable Care Team Providers Care Ict Managers Name Role Phone Tita Robles Unavailable PROBLEMS Type Condition ICD9-CM Code [id number] Code Onset Dates Condition S tatus W/U Status Risk SNOMED Code Notes Problem Essential hypertension I10 Active confirmed 54672154 Problem Depression with anxiety F41.8 Active confirmed 905173635 Problem Acne vulgaris L70.0 Active confirmed 061728 00 Problem Polyarthropathy M13.0 Active confirmed 3618 6002 Problem Depression, unspecified depression type F32.9 Active confirmed 03952120 Problem Neurotic excoriations L98.1 Active confirmed 56099304 Problem Nicotine dependence, cigarettes, uncomplicated F17 .210 Active confirmed 00162405 Problem Skin-picking disorder F42.4 Active confirmed 854657403 Problem Panic attacks F41.0 Active confirmed 225941 000 Problem Lumbago with sciatica, left side M54.42 Active confirmed 557489042 Problem Lumbago with sciatica, right side M54.41 Active confirmed 188003328750272 Problem Essential hypertension affecting in se cond trimester O10.012 Active confirmed 37730856 Problem Anxiety disorder, unspecified F41.9 Active confirm ed 244573689 Problem Essential hypertension affecting in third tr imester O10.013 Active confirmed 56658076 Problem Migraine with aura and without status migrainosu s, not intractable G43.109 Active confirmed 3641086 Problem Smoker unmotivated to quit F17.200 Active confirmed 907678633 Problem Other chronic pain G89.29 Active confirmed 8 6328926 Problem Sacroiliitis M46.1 Active confirmed 3310512 9 Problem Supervision of other normal Z34.80 Ac tive confirm 433841265 Problem Chronic hypertension affecting O10.919 Active confirmed 33950256 ALLERGIES Allergen (clinical drug ingredient) Drug/Non Drug Allergy do cumented on EMR Reaction Allergy Type Onset Date Status Pollen Pollen Unknown Drug Allergy Active ENCOUNTERS from 1989 to 2021-08-17 Encounter Location Date Provider Diagnosis [facility] [address] [facility] [phone] [place] [address] Aug, Tita Robles IMMUNIZATIONS Vaccine Route Administration Date Status TDAP 0.5mL Boostrix IM Intramuscular Jul 07, 2021 Administere d Pneumococcal Adult 0.5mL Pneumovax 23 IM Intramuscular Jul 25 017 Administered Influenza 6mo & up Fluzone IM Intramuscular Jul 25, 2017 Admi nistered SOCIAL HISTORY Tobacco Use: Social History Observation Description Date Details (start date - stop date) Current Smoker Sex Assigned At : Social History Observation Description Sex Assigned At Unknown Education: Question Answer Notes Level of Education: Not finished High School 11th grade Audit Question Answer Notes Total Score: 1 Interpretation: Alcohol Education Language: Question Answer Notes Languages spoken: Danish Latter Day: Question Answer Notes Latter Day No jehovah's witness beliefs that would impact health care. Drug and Alcohol Question Answer Notes Total Score: 0 Interpretation: No problems reported Alcohol Screening: Question Answer Notes Did you have a drink containing alcohol in the past year? No Points 0 Interpretation Negative Tobacco Use: Question Answer Notes Are you a: current smoker How many cigarettes a day do you smoke? 5 or less Are you interested in quitting? Thinking about quitting Counseled the patient on smoking cessation, education provid ed 06/23/2021 REASON FOR REFERRAL No Information VITAL SIGNS No information MEDICATIONS Medication SIG (Take, Route, Frequency, Duration) Notes Start Da te End Date Status Pepcid 40 MG 1 tablet at bedtime Orally Once a day for 30 day(s) Jun, Active Labetalol HCl 200 MG 1 tablet Orally Twice a day for 30 day(s) Aug, Active Zofran 4 MG 1 tablet Orally every 8 hours as needed for nausea for 15 Active PROzac 10 MG 1 capsule Orally Once a day for 30 day(s) Jun, Active Ondansetron 4 MG 1 tablet on the tongue and a llow to dissolve Orally Once a day for 30 day(s) May, Active busPIRone HCl 10 MG 1 tablet Orally Twice a day as needed for 30 Days January, Active Ventolin HFA 108 (90 Base) MCG/ACT 2 puffs as needed Inhalation travon ry 6 hrs Active Labetalol HCl 200 MG 1 tablet Orally Twice a day for 30 day(s) May, Not-Taking 27-1 MG 1 tablet Orally Once a day Active Gabapentin 100 MG 1 capsule Orally three times daily for 30 Days January, Active Meclizine HCl 25 MG 1 tablet as needed Orally Once a day for 30 day(s) Jul, Active Aspirin 81 MG 1 tablet Orally Once a day for 90 day(s) Apr, Active PROCEDURES No Information RESULTS No Results REASON FOR VISIT IOL Concern MEDICAL (GENERAL) HISTORY Type Description Date Medical History Depression Medical History Smoker, unmotivated to quit Medical History Anxiety Medical History Chronic HTN Surgical History appendectomy 2008 Surgical History Exploratory laparotomy; eval for fertili ty 2008 Surgical History tonsils and adenoids child Hospitalization History hospitalization for surgeries only Hospitalization History childbirth Goals Section No Information Health Concerns No Information MEDICAL EQUIPMENT No Information MENTAL STATUS No Information FUNCTIONAL STATUS No Information ASSESSMENTS No Information PLAN OF TREATMENT Next Appt Details Provider Name:Hallie Boydalbert, 2021-01-11 10:15:00 AM, [address] [facility], , [place], [address], Insurance Providers Payer Name Payer Address Payer Phone Insured Name Patient Relati onship to Insured Coverage Start Date Coverage End Date [facility] COMMUNITY PLAN [facility] [address] [facility] [phone] RAYRAY CAMPO
--- OUTSIDE RECORDS SUMMARY | 2021-08-22 17:00 | CCD ---
Author Author [facility] Organization [facility] Address Unknown Phone Unavailable Care Team Providers Care Construction Flagger Name Role Phone Ebonie Barriga Unavailable PROBLEMS Type Condition ICD9-CM Code [id number] Code Onset Dates Condition S tatus W/U Status Risk SNOMED Code Notes Problem Depression with anxiety F41.8 Active confirmed 642109324 Problem Smoker unmotivated to quit F17.200 Active confirmed 006552594 Problem Polyarthropathy M13.0 Active confirmed 3618 6002 Problem Essential hypertension I10 Active confirmed 34145531 Problem Neurotic excoriations L98.1 Active confirmed 97412969 Problem Acne vulgaris L70.0 Active confirmed 926880 00 Problem Skin-picking disorder F42.4 Active confirmed 623611724 Problem Depression, unspecified depression type F32.9 Active confirmed 87989617 Problem Anxiety disorder, unspecified F41.9 Active confirm ed 296932244 Problem Panic attacks F41.0 Active confirmed 789414 000 Problem Lumbago with sciatica, left side M54.42 Active confirmed 248881912 Problem Chronic hypertension affecting O10.919 Active confirmed 12274480 Problem Migraine with aura and without status migrainosu s, not intractable G43.109 Active confirmed 4665726 Problem Essential hypertension affecting in se cond trimester O10.012 Active confirmed 37623654 Problem Nicotine dependence, cigarettes, uncomplicated F17 .210 Active confirmed 08014381 Problem Lumbago with sciatica, right side M54.41 Active confirmed 153754394223438 Problem Other chronic pain G89.29 Active confirmed 8 9894951 Problem Sacroiliitis M46.1 Active confirmed 9363671 9 Problem Supervision of other normal Z34.80 Ac tive confirm 516864721 ALLERGIES Allergen (clinical drug ingredient) Drug/Non Drug Allergy do cumented on EMR Reaction Allergy Type Onset Date Status Pollen Pollen Unknown Drug Allergy Active ENCOUNTERS from 1989 to 2021-08-05 Encounter Location Date Provider Diagnosis [facility] [address] [facility] [phone] [place] [address] [facility], [facility] Chronic hypertens ion affecting O10.919 and 34 weeks gestation of Z3A.34 IMMUNIZATIONS Vaccine Route Administration Date Status TDAP [...] Education Language: Question Answer Notes Languages spoken: Kyrgyz Restorationist: Question Answer Notes Restorationist No buddhism beliefs that would impact health care. Drug [...] REASON FOR REFERRAL No Information VITAL SIGNS Weight 214 lbs Jul, Weight-kg 97.07 kg Jul, Height 64 in Jul, BMI 36.733 kg/m2 Jul, Blood pressure systolic 126 mm Hg Jul, Blood pressure diastolic 76 mm Hg Jul, MEDICATIONS Medication SIG (Take, Route, Frequency, Duration) Notes Start Da te End Date Status Aspirin 81 MG 1 tablet Orally Once a day for 90 day(s) Apr, Active 27-1 MG 1 tablet Orally Once a day Active PROzac 10 MG 1 capsule Orally Once a day for 30 day(s) Jun, Active Gabapentin 100 MG 1 capsule Orally three times daily for 30 Days January, Active Pepcid 40 MG 1 tablet at bedtime Orally Once a day for 30 day(s) Jun, Active Labetalol HCl 100 MG 1 tablet Orally Twice a day for 30 day(s) May, Active Ventolin HFA 108 (90 Base) MCG/ACT 2 puffs as needed Inhalation travon ry 6 hrs Active Zofran 4 MG 1 tablet Orally every 8 hours as needed for nausea for 15 Active Meclizine HCl 25 MG 1 tablet as needed Orally Once a day for 30 day(s) Jul, Active busPIRone HCl 10 MG 1 tablet Orally Twice a day as needed for 30 Days January, Active Ondansetron 4 MG 1 tablet on the tongue and a llow to dissolve Orally Once a day for 30 day(s) May, Active PROCEDURES No Information RESULTS No Results REASON FOR VISIT 1WK PN MEDICAL (GENERAL) HISTORY Type Description Date Medical [...] No Information FUNCTIONAL STATUS No Information ASSESSMENTS Encounter Date Diagnosis Assessment Notes Treatment Notes Treatm ent Clinical Notes Jul, Chronic hypertension affecting (ICD-10 - O10.919) Jul, 34 weeks gestation of (ICD-10 - Z3A.34 ) PLAN OF TREATMENT Pending Tests Test Name Order Date non-stress test 2021-08-04 Next Appt Details 1 Week Reason:- COB appt with testing Provider Name:Jarod Maloney, 2021-08-11 1 0:00:00 AM, [address] [place] [address], , [place], [address], Provider Name:Hallie Butler, 5- 10:15:00 AM, [facility] [facility], , [place], [address], Follow Up:1 Week- COB appt with testing Insurance Providers Payer Name Payer Address Payer Phone Insured Name Patient Relati onship to Insured Coverage Start Date Coverage End Date [facility] COMMUNITY PLAN [facility] [address] [facility] [phone] RAYRAY CAMPO self
--- OUTSIDE RECORDS SUMMARY | 2021-08-22 17:00 | CCD ---
Author Author [facility] Organization [facility] Address Unknown Phone Unavailable Care Team Providers Care Tank House Operator Name Role Phone Jarod Maloney Unavailable PROBLEMS Type Condition ICD9-CM Code CTO19-DX Code Onset Dates Condition S tatus W/U Status Risk SNOMED Code Notes Problem Depression with anxiety F41.8 Active confirmed 199288623 Problem Smoker unmotivated to quit F17.200 Active confirmed 050550328 Problem Polyarthropathy M13.0 Active confirmed 3618 6002 Problem Essential hypertension I10 Active confirmed 35583199 Problem Neurotic excoriations L98.1 Active confirmed 49226819 Problem Acne vulgaris L70.0 Active confirmed 358269 00 Problem Skin-picking disorder F42.4 Active confirmed 643130416 Problem Depression, unspecified depression type F32.9 Active confirmed 83156481 Problem Anxiety disorder, unspecified F41.9 Active confirm ed 454068890 Problem Panic attacks F41.0 Active confirmed 252836 000 Problem Lumbago with sciatica, left side M54.42 Active confirmed 255329645 Problem Chronic hypertension affecting O10.919 Active confirmed 35106721 Problem Migraine with aura and without status migrainosu s, not intractable G43.109 Active confirmed 5931139 Problem Essential hypertension affecting in se cond trimester O10.012 Active confirmed 61525505 Problem Nicotine dependence, cigarettes, uncomplicated F17 .210 Active confirmed 61590706 Problem Lumbago with sciatica, right side M54.41 Active confirmed 915153658529108 Problem Other chronic pain G89.29 Active confirmed 8 9328164 Problem Sacroiliitis M46.1 Active confirmed 9840469 9 Problem Supervision of other normal Z34.80 Ac tive confirm 129727337 ALLERGIES Allergen (clinical drug ingredient) Drug/Non Drug Allergy do cumented on EMR Reaction Allergy Type Onset Date Status Pollen Pollen Unknown Drug Allergy Active ENCOUNTERS from 1989 to 2021-07-08 Encounter Location Date Provider Diagnosis [facility] [address] [facility] [phone] [place] [address] Jun, Jarod Maloney Essential hypertensi on affecting in third trimester O10.013 ; Essential hypertension I10 ; 35 weeks gestation of Z3A.35 and Encounter for immunization Z23 IMMUNIZATIONS Vaccine Route Administration Date Status TDAP [...] Education Language: Question Answer Notes Languages spoken: Luxembourger Mormon: Question Answer Notes Mormon No latter day beliefs that would impact health care. Drug [...] FOR REFERRAL No Information VITAL SIGNS Weight 211.6 lbs Jun, Weight-kg 95.98 kg Jun, Height 64 in Jun, BMI 36.321 kg/m2 Jun, Blood pressure systolic 162 mm Hg Jun, Blood pressure diastolic 102 mm Hg Jun, MEDICATIONS Medication SIG (Take, Route, Frequency, Duration) Notes Start Da te End Date Status Labetalol HCl 100 MG 1 tablet Orally Twice a day for 30 day(s) May, Active Labetalol HCl 100 MG 1 tablet Orally Twice a day for 30 day(s) Feb, Not-Taking fluvoxaMINE Maleate 100 MG 1 tablet at bedtime Orally twice aaron y for 30 Days Not-Taking Ventolin HFA 108 (90 Base) MCG/ACT 2 puffs as needed Inhalation travon ry 6 hrs Active 27-1 MG 1 tablet Orally Once a day Active Aspirin 81 MG 1 tablet Orally Once a day for 90 day(s) Apr, Active Ondansetron 4 MG 1 tablet on the tongue and a llow to dissolve Orally Once a day for 30 day(s) May, Active PROzac 10 MG 1 capsule Orally Once a day for 30 day(s) Jun, Active busPIRone HCl 10 MG 1 tablet Orally Twice a day as needed for 30 Days January, Active Pepcid 40 MG 1 tablet at bedtime Orally Once a day for 30 day(s) Jun, Active Meclizine HCl 25 MG 1 tablet as needed Orally Once a day for 30 day(s) Jul, Active Zofran 4 MG 1 tablet Orally every 8 hours as needed for nausea for 15 Active Gabapentin 100 MG 1 capsule Orally three times daily for 30 Days January, Active PROCEDURES from 1989 to 2021-07-08 Procedure Date Ordered Result Body Site Imm: Boostrix 0.5mL IM TDAP 2021-07-07 N/A RESULTS No Results REASON FOR VISIT 2 WK PN MEDICAL (GENERAL) HISTORY Type Description Date [...] Notes Treatment Notes Treatm ent Clinical Notes Jun, Essential hypertension affec ting in third trimester (ICD- 10 - O10.013) Jun, Essential hypertension (ICD-10 - I10) Jun, 35 weeks gestation of (ICD-10 - Z3A.35 ) Jun, Encounter for immunization (ICD-10 - Z23) PLAN OF TREATMENT Medication Medication Name Sig Start Date Stop Date PROzac 10 MG 1 capsule Orally Once a day for 30 day(s) Jun Treatment Notes Test Name Order Date [facility] OBS FOLLOW UP OR REPEAT 2021-07-07 Next Appt Details 2 Weeks Reason: Provider Name:Luis Jean, 2021-07-22 11:15:00 AM, [address] [place] [address], , [place], [address], Provider Name:Hallie Butler, 01-11 10:15:00 AM, [address] [place] [address], , [place], [address], Insurance Providers Payer Name Payer Address Payer Phone Insured Name Patient Relati onship to Insured Coverage Start Date Coverage End Date [facility] COMMUNITY PLAN [facility] [address] [facility] [address] [phone] RAYRAY CAMPO self
--- OUTSIDE RECORDS SUMMARY | 2021-08-22 17:00 | CCD ---
Author Author [facility] Organization [facility] Address Unknown Phone Unavailable Care Team Providers Care Correctional Guard Name Role Phone Jarod Maloney Unavailable PROBLEMS Type Condition ICD9-CM Code PGM69-GQ Code Onset Dates Condition S tatus W/U Status Risk SNOMED Code Notes Problem Depression with anxiety F41.8 Active confirmed 729158392 Problem Smoker unmotivated to quit F17.200 Active confirmed 595181187 Problem Polyarthropathy M13.0 Active confirmed 3618 6002 Problem Essential hypertension I10 Active confirmed 20148860 Problem Neurotic excoriations L98.1 Active confirmed 66186987 Problem Acne vulgaris L70.0 Active confirmed 206651 00 Problem Skin-picking disorder F42.4 Active confirmed 112493278 Problem Depression, unspecified depression type F32.9 Active confirmed 00347696 Problem Anxiety disorder, unspecified F41.9 Active confirm ed 029502351 Problem Panic attacks F41.0 Active confirmed 415591 000 Problem Lumbago with sciatica, left side M54.42 Active confirmed 936953847 Problem Chronic hypertension affecting O10.919 Active confirmed 97898575 Problem Migraine with aura and without status migrainosu s, not intractable G43.109 Active confirmed 0628497 Problem Essential hypertension affecting in se cond trimester O10.012 Active confirmed 98653323 Problem Nicotine dependence, cigarettes, uncomplicated F17 .210 Active confirmed 06093726 Problem Lumbago with sciatica, right side M54.41 Active confirmed 220383824184619 Problem Other chronic pain G89.29 Active confirmed 8 5500274 Problem Sacroiliitis M46.1 Active confirmed 6816123 9 Problem Supervision of other normal Z34.80 Ac tive confirm 714586407 ALLERGIES Allergen (clinical drug ingredient) Drug/Non Drug Allergy do cumented on EMR Reaction Allergy Type Onset Date Status environmental Unknown Non Drug Allergy Activ e ENCOUNTERS from 1989 to 2021-06-10 Encounter Location Date Provider Diagnosis [facility] [address] [facility] [phone] [place] [address] May, Jarod Maloney IMMUNIZATIONS Vaccine Route Administration Date Status Pneumococcal Adult 0.5mL Pneumovax 23 IM Intramuscular [...] Education Language: Question Answer Notes Languages spoken: Serbian Restorationist: Question Answer Notes Restorationist No oriental orthodox beliefs that would impact health care. Drug and Alcohol Question Answer Notes Total Score: 0 Interpretation: No problems reported Tobacco Use: Question Answer Notes Are you a: current smoker Smoking Cessation Information Given 07/31/2020 Patient counseled on the dangers of tobacco use and urged to quit: 07/31/2020 How many cigarettes a day do you smoke? 6-10 Are you interested in quitting? Thinking about quitting REASON FOR REFERRAL No Information VITAL SIGNS No information MEDICATIONS Medication SIG (Take, Route, Frequency, Duration) Notes Start Da te End Date Status Meclizine HCl 25 MG 1 tablet as needed Orally Once a day for 30 day(s) Jul, Active Gabapentin 100 MG 1 capsule Orally three times daily for 90 days January, Active 27-1 MG 1 tablet Orally Once a day Active Ventolin HFA 108 (90 Base) MCG/ACT 2 puffs as needed Inhalation travon ry 6 hrs Active Labetalol HCl 100 MG 1 tablet Orally Twice a day for 30 day(s) Feb, Active Aspirin 81 MG 1 tablet Orally Once a day for 90 day(s) Apr, Active Zofran 4 MG 1 tablet Orally every 8 hours as needed for nausea for 15 Active Ondansetron 4 MG 1 tablet on the tongue and a llow to dissolve Orally Once a day for 30 day(s) May, Active busPIRone HCl 10 MG 1 tablet Orally Twice a day as needed for 30 Days January, Active fluvoxaMINE Maleate 100 MG 1 tablet at bedtime Orally twice aaron y for 30 Days Active Labetalol HCl 100 MG 1 tablet Orally Twice a day for 30 day(s) May, Active PROCEDURES No Information RESULTS No Results REASON FOR VISIT concerns MEDICAL (GENERAL) HISTORY Type Description Date Medical [...] Information ASSESSMENTS No Information PLAN OF TREATMENT Medication Medication Name Sig Start Date Stop Date Labetalol HCl 100 MG 1 tablet Orally Twice a day for 30 day(s) 2 9 May, 2021 Ondansetron 4 MG 1 tablet on the tongue and a llow to dissolve Orally Once a day for 30 day(s) May, Next Appt Details Provider Name:Luis Jean, 2021-06-23 10:30:00 AM, [address] [place] [address] , [place], [address], Provider Name:Hallie Butler, 01-11 10:15:00 AM, [address] [place] [address] , [place], [address], Insurance Providers Payer Name Payer Address Payer Phone Insured Name Patient Relati onship to Insured Coverage Start Date Coverage End Date [facility] COMMUNITY PLAN [facility] [address] [facility] [phone] RAYRAY CAMPO
--- OUTSIDE RECORDS SUMMARY | 2021-08-22 17:00 | CCD ---
Author Author [facility] Organization [facility] Address Unknown Phone Unavailable Care Team Providers Care Nursing Support Worker Name Role Phone Luis Jean Unavailable PROBLEMS Type Condition ICD9-CM Code [id number] Code Onset Dates Condition S tatus W/U Status Risk SNOMED Code Notes Problem Depression with anxiety F41.8 Active confirmed 860639628 Problem Smoker unmotivated to quit F17.200 Active confirmed 997927629 Problem Polyarthropathy M13.0 Active confirmed 3618 6002 Problem Essential hypertension I10 Active confirmed 10082043 Problem Neurotic excoriations L98.1 Active confirmed 46747639 Problem Acne vulgaris L70.0 Active confirmed 772470 00 Problem Skin-picking disorder F42.4 Active confirmed 442660880 Problem Depression, unspecified depression type F32.9 Active confirmed 68103821 Problem Anxiety disorder, unspecified F41.9 Active confirm ed 658416443 Problem Panic attacks F41.0 Active confirmed 718218 000 Problem Lumbago with sciatica, left side M54.42 Active confirmed 081814760 Problem Chronic hypertension affecting O10.919 Active confirmed 16506594 Problem Migraine with aura and without status migrainosu s, not intractable G43.109 Active confirmed 1526447 Problem Essential hypertension affecting in se cond trimester O10.012 Active confirmed 47241029 Problem Nicotine dependence, cigarettes, uncomplicated F17 .210 Active confirmed 37788807 Problem Lumbago with sciatica, right side M54.41 Active confirmed 212650378313892 Problem Other chronic pain G89.29 Active confirmed 8 8281624 Problem Sacroiliitis M46.1 Active confirmed 5641044 9 Problem Supervision of other normal Z34.80 Ac tive confirm 730246001 ALLERGIES Allergen (clinical drug ingredient) Drug/Non Drug Allergy do cumented on EMR Reaction Allergy Type Onset Date Status Pollen Pollen Unknown Drug Allergy Active ENCOUNTERS from 1989 to 2021-07-06 Encounter Location Date Provider Diagnosis [facility] [address] [facility] [phone] [place] [address] Jun, Luis Ted Encounter for superv ision of normal in multigravida in third trimester Z34.83 and 28 weeks gestation of Z3A.28 IMMUNIZATIONS Vaccine Route Administration Date Status Pneumococcal [...] Education Language: Question Answer Notes Languages spoken: Spanish Church: Question Answer Notes Church No christian beliefs that would impact health care. Drug [...] FOR REFERRAL No Information VITAL SIGNS Weight 211.4 lbs Jun, Height 64 in Jun, BMI 36.287 kg/m2 Jun, Blood pressure systolic 122 mm Hg Jun, Blood pressure diastolic 76 mm Hg Jun, MEDICATIONS Medication SIG (Take, Route, Frequency, Duration) Notes Start Da te End Date Status Meclizine HCl 25 MG 1 tablet as needed Orally Once a day for 30 day(s) Jul, Active 27-1 MG 1 tablet Orally Once a day Active Gabapentin 100 MG 1 capsule Orally three times daily for 30 Days January, Active Pepcid 40 MG 1 tablet at bedtime Orally Once a day for 30 day(s) Jun, Active Labetalol HCl 100 MG 1 tablet Orally Twice a day for 30 day(s) May, Active Ondansetron 4 MG 1 tablet on the tongue and a llow to dissolve Orally Once a day for 30 day(s) May, Active Ventolin HFA 108 (90 Base) MCG/ACT 2 puffs as needed Inhalation travon ry 6 hrs Active Aspirin 81 MG 1 tablet Orally Once a day for 90 day(s) Apr, Active Zofran 4 MG 1 tablet Orally every 8 hours as needed for nausea for 15 Active busPIRone HCl 10 MG 1 tablet Orally Twice a day as needed for 30 Days January, Active Labetalol HCl 100 MG 1 tablet Orally Twice a day for 30 day(s) Feb, Active fluvoxaMINE Maleate 100 MG 1 tablet at bedtime Orally twice aaron y for 30 Days Not-Taking PROCEDURES No Information RESULTS No Results REASON FOR VISIT 3wk pn MEDICAL (GENERAL) HISTORY Type Description Date Medical [...] Treatment Notes Treatm ent Clinical Notes Jun, Encounter for supervision of normal in multigravida in third trimester (ICD-10 - Z34.83) Jun, 28 weeks gestation of (ICD-10 - Z3A.28 ) PLAN OF TREATMENT Medication Medication Name Sig Start Date Stop Date Pepcid 40 MG 1 tablet at bedtime Orally Once a day for 30 day (s) Jun, Labetalol HCl 100 MG 1 tablet Orally Twice a day for 30 day(s) 1 Feb, Gabapentin 100 MG 1 capsule Orally three times daily for 30 Days January, Treatment Notes Test Name Order Date [facility] OBS FOLLOW UP OR REPEAT 2021-06-23 Next Appt Details Provider Name:Jarod Maloney, 2021-07-07 1 1:00:00 AM, [address], , [place], [address], Provider Name:Hallie Butler, 01-11 10:15:00 AM, [address], , [place], [address], Insurance Providers Payer Name Payer Address Payer Phone Insured Name Patient Relati onship to Insured Coverage Start Date Coverage End Date [facility] COMMUN[facility] PLAN [facility] [address] [facility] [id number] [phone] RAYRAY CAMPO self
--- OUTSIDE RECORDS SUMMARY | 2021-08-22 17:00 | CCD ---
Author Author [facility] Organization [facility] Address Unknown Phone Unavailable Care Team Providers Care Shaft Mechanic Name Role Phone Luis Jean Unavailable PROBLEMS Type Condition ICD9-CM Code FHX31-[id number] Code Onset Dates Condition S tatus W/U Status Risk SNOMED Code Notes Problem Depression with anxiety F41.8 Active confirmed 199437912 Problem Smoker unmotivated to quit F17.200 Active confirmed 107891394 Problem Polyarthropathy M13.0 Active confirmed 3618 6002 Problem Essential hypertension I10 Active confirmed 18581648 Problem Neurotic excoriations L98.1 Active confirmed 48139602 Problem Acne vulgaris L70.0 Active confirmed 308425 00 Problem Skin-picking disorder F42.4 Active confirmed 122171528 Problem Depression, unspecified depression type F32.9 Active confirmed 02005375 Problem Anxiety disorder, unspecified F41.9 Active confirm ed 944486941 Problem Panic attacks F41.0 Active confirmed 060634 000 Problem Lumbago with sciatica, left side M54.42 Active confirmed 392773395 Problem Chronic hypertension affecting O10.919 Active confirmed 18774266 Problem Migraine with aura and without status migrainosu s, not intractable G43.109 Active confirmed 7540943 Problem Essential hypertension affecting in se cond trimester O10.012 Active confirmed 42477425 Problem Nicotine dependence, cigarettes, uncomplicated F17 .210 Active confirmed 41100929 Problem Lumbago with sciatica, right side M54.41 Active confirmed 403438233942036 Problem Other chronic pain G89.29 Active confirmed 8 8342694 Problem Sacroiliitis M46.1 Active confirmed 5969102 9 Problem Supervision of other normal Z34.80 Ac tive confirm 121670236 ALLERGIES Allergen (clinical drug ingredient) Drug/Non Drug Allergy do cumented on EMR Reaction Allergy Type Onset Date Status Pollen Pollen Unknown Drug Allergy Active ENCOUNTERS from 1989 to 2021-07-29 Encounter Location Date Provider Diagnosis [facility] [address] [facility] [phone] [place] [address] 10 Jul, 2021 Luis Jean Essential hypertensi on during in third trimester O10.013 ; Essential hypertension I10 and 32 weeks gestation of Z3A.32 IMMUNIZATIONS Vaccine Route Administration Date Status TDAP [...] Language: Question Answer Notes Languages spoken: Serbian Episcopal: Question Answer Notes Episcopal No confucianism beliefs that would impact health care. Drug [...] FOR REFERRAL No Information VITAL SIGNS Weight 212.6 lbs Jul, Height 64 in Jul, BMI 36.493 kg/m2 Jul, Blood pressure systolic 132 mm Hg Jul, Blood pressure diastolic 82 mm Hg Jul, MEDICATIONS Medication SIG (Take, Route, Frequency, Duration) Notes Start Da te End Date Status Gabapentin 100 MG 1 capsule Orally three times daily for 30 Days January, Active Aspirin 81 MG 1 tablet Orally Once a day for 90 day(s) Apr, Active Labetalol HCl 100 MG 1 tablet Orally Twice a day for 30 day(s) May, Active Ondansetron 4 MG 1 tablet on the tongue and a llow to dissolve Orally Once a day for 30 day(s) May, Active Zofran 4 MG 1 tablet Orally every 8 hours as needed for nausea for 15 Active 27-1 MG 1 tablet Orally Once a day Active Meclizine HCl 25 MG 1 tablet as needed Orally Once a day for 30 day(s) Jul, Active PROzac 10 MG 1 capsule Orally Once a day for 30 day(s) Jun, Active Pepcid 40 MG 1 tablet at bedtime Orally Once a day for 30 day(s) Jun, Active Ventolin HFA 108 (90 Base) MCG/ACT 2 puffs as needed Inhalation travon ry 6 hrs Active busPIRone HCl 10 MG 1 tablet Orally Twice a day as needed for 30 Days January, Active PROCEDURES No Information RESULTS No Results REASON FOR VISIT 2 wk pn MEDICAL (GENERAL) HISTORY Type Description Date [...] Treatment Notes Treatm ent Clinical Notes Jul, Essential hypertension angeliquein g in third trimester (ICD-10 - O10.013) Jul, Essential hypertension (ICD-10 - I10) Jul, 32 weeks gestation of (ICD-10 - Z3A.32 ) PLAN OF TREATMENT Next Appt Details Provider Name:Ebonie Barriga, 2021-08-04 09:40:00 AM, [address] [place] [address], , [place], [address], Provider Name:Hallie Butler, 01-11 10:15:00 AM, [address] [facility], , [place], [address], Insurance Providers Payer Name Payer Address Payer Phone Insured Name Patient Relati onship to Insured Coverage Start Date Coverage End Date [facility] [facility] [address] [facility] [phone] RAYRAY CAMPO self
--- OUTSIDE RECORDS SUMMARY | 2021-08-22 17:00 | CCD ---
Author Author [facility] Organization [facility] Address Unknown Phone Unavailable Care Team Providers Care Water Carter Name Role Phone Ebonie Barirga Unavailable PROBLEMS Type Condition ICD9-CM Code FVQ49-GA Code Onset Dates Condition S tatus W/U Status Risk SNOMED Code Notes Problem Essential hypertension I10 Active confirmed 42987922 Problem Depression with anxiety F41.8 Active confirmed 801225480 Problem Acne vulgaris L70.0 Active confirmed 737849 00 Problem Polyarthropathy M13.0 Active confirmed 3618 6002 Problem Depression, unspecified depression type F32.9 Active confirmed 83147656 Problem Neurotic excoriations L98.1 Active confirmed 57602127 Problem Nicotine dependence, cigarettes, uncomplicated F17 .210 Active confirmed 63073053 Problem Skin-picking disorder F42.4 Active confirmed 401982254 Problem Panic attacks F41.0 Active confirmed 118221 000 Problem Lumbago with sciatica, left side M54.42 Active confirmed 811646454 Problem Lumbago with sciatica, right side M54.41 Active confirmed 600122510323203 Problem Essential hypertension affecting in se cond trimester O10.012 Active confirmed 51701244 Problem Anxiety disorder, unspecified F41.9 Active confirm ed 481563659 Problem Essential hypertension affecting in third tr imester O10.013 Active confirmed 88297429 Problem Migraine with aura and without status migrainosu s, not intractable G43.109 Active confirmed 8419343 Problem Smoker unmotivated to quit F17.200 Active confirmed 725003961 Problem Other chronic pain G89.29 Active confirmed 8 3528959 Problem Sacroiliitis M46.1 Active confirmed 6081483 9 Problem Supervision of other normal Z34.80 Ac tive confirm 088245487 Problem Chronic hypertension affecting O10.919 Active confirmed 11841762 ALLERGIES Allergen (clinical drug ingredient) Drug/Non Drug Allergy do cumented on EMR Reaction Allergy Type Onset Date Status Pollen Pollen Unknown Drug Allergy Active ENCOUNTERS from 1989 to 2021-08-14 Encounter Location Date Provider Diagnosis [facility] [address] [facility] [phone] [place] [address] Aug, [facility] IMMUNIZATIONS Vaccine Route Administration Date Status TDAP [...] Education Language: Question Answer Notes Languages spoken: Mongolian Presybeterian: Question Answer Notes Presybeterian No synagogue beliefs that would impact health care. Drug [...] FOR REFERRAL No Information VITAL SIGNS Weight 216 lbs Aug, Height 64 in Aug, BMI 37.07 kg/m2 Aug, Blood pressure systolic 124 mm Hg Aug, Blood pressure diastolic 70 mm Hg Aug, MEDICATIONS Medication SIG (Take, Route, Frequency, Duration) [...] Information RESULTS No Results REASON FOR VISIT blood pressure check MEDICAL (GENERAL) HISTORY Type Description Date Medical [...] OF TREATMENT Next Appt Details Provider Name:Hallie Butler, 2021-0 01-11 10:15:00 AM, [address] [facility], , [place], [address], Insurance Providers Payer Name Payer Address Payer Phone Insured Name Patient Relati onship to Insured Coverage Start Date Coverage End Date [facility]AN [facility] [address] [facility] [address] RAYRAY CAMPO
--- OUTSIDE RECORDS SUMMARY | 2021-08-22 17:00 | CCD ---
Author Author [facility] Organization [facility] Address Unknown Phone Unavailable Support Name Relationship Address Phone ALIDA COWAN Next Of Kin [address] [place] [address] KAVITHA DYA Next Of Kin [address] [place] [address] UE Next Of Kin Unknown Unavailable ROBIN CAMPO Next Of Kin [address] [facility] [address] [place] [address] Kavitha Day ECON [address] [address] Unavailable Re-disclosure Warning The records that you are about to access may contain information from federally-assisted alcohol or drug abuse programs. If such information is present, then the following federally mandated warning applies: This information has been disclosed to you from records protected by federal confidentiality rules (42 CFR part 2). The federal rules prohibit you from making any further disclosure of this information unless further disclosure is expressly permitted by the written consent of the person to whom it pertains or as otherwise permitted by 42 CFR part 2. A general authorization for the release of medical or other information is NOT sufficient for this purpose. The Federal rules restrict any use of the information to criminally investigate or prosecute any alcohol or drug abuse patient.The records that you are about to access may contain highly sensitive health information, the redisclosure of which is protected by Article 27-F of the [facility] Public Health law. If you continue you may have access to information: Regarding HIV / AIDS; Provided by facilities licensed or operated by the [facility] Office of Mental Health; or Provided by the [facility] Office for People With Developmental Disabilities. If such information is present, then the following [facility] mandated warning applies: This information has been disclosed to you from confidential records which are protected by state law. State law prohibits you from making any further disclosure of this information without the specific written consent of the person to whom it pertains, or as otherwise permitted by law. Any unauthorized further disclosure in violation of state law may result in a fine or alf sentence or both. A general authorization for the release of medical or other information is NOT sufficient authorization for further disc losure. Family History Family Member Name Family Member Gender Family Member Status Date o f Status Description Data Source(s) Unknown Unknown Problem MEDENT ([facility], ) Unknown Unknown Problem MED[facility] ([facility], ) Unknown Unknown Problem MEDENT ([facility], ) Unknown Unknown Problem MEDENT ([facility], ) Unknown Unknown Problem MEDENT ([facility], ) Unknown Unknown Problem MEDENT ([facility], ) Unknown Unknown Problem MEDENT ([facility], ) Encounters Encounter Providers Location Date Indications Data Source(s ) Unknown [address] [facility] [address] 08/17/2021 12:00:00 AM EST eCW1 ([facility]) Unknown [address] [facility] [address] 08/14/2021 12:00:00 AM EST eCW1 ([facility]) ( [place]) [facility] Nurse Visit [address] [place] [address] 08/14/2021 12:00:00 AM EST eCW1 ([facility]) ( ESTOB) enter Est OB [address] [place] [address] 08/04/2021 12:00:00 AM EST eCW1 ([facility]) ( ESTOB) enter Est OB [address] [place] [address] 07/22/2021 12:00:00 AM EST eCW1 ([facility]) ( ESTOB) [facility] Est OB [address] [place] [address] 07/07/2021 12:00:00 AM EDT eCW1 ([facility]) Unknown [address] [facility] [address] 06/29/2021 12:00:00 AM EDT eCW1 ([facility]) (WC ESTOB) [facility] Est [facility] [address] [place] [address] 06/23/2021 12:00:00 AM EDT eCW1 ([facility]) [place] [address] [facility] [address] 06/10/2021 12:00:00 AM EDT eCW1 ([facility]) (WC ESTOB) [facility] Est [facility] [address] [place] [address] 05/21/2021 12:00:00 AM EDT eCW1 ([facility]) (WC ESTOB) [facility] Est OB [address] [place] [address] 04/22/2021 12:00:00 AM EDT eCW1 ([facility]) [place] [address] [facility] [address] 04/21/2021 12:00:00 AM EDT eCW1 ([facility]) [place] [address] [facility] [address] 04/20/2021 12:00:00 AM EDT eCW1 ([facility]) (WC ESTOB) enter Est OB [address] [place] [address] 03/24/2021 12:00:00 AM EDT eCW1 ([facility]) (WC ESTOB) enter Est OB [address] [place] [address] 02/23/2021 12:00:00 AM EDT eCW1 ([facility]) [place] [address] [facility] [address] 02/16/2021 12:00:00 AM EDT eCW1 ([facility]) [place] [address] [facility] [address] 02/04/2021 12:00:00 AM EDT eCW1 ([facility]) (WC NEWOB) [facility] New OB Visit [address] [place] [address] 01/26/2021 12:00:00 AM EDT eCW1 ([facility]) [place] [address] [facility] [address] 01/26/2021 12:00:00 AM EDT eCW1 ([facility]) [place] [address] [facility] [address] 01/22/2021 12:00:00 AM EDT eCW1 ([facility]) [place] [address] [facility] [address] 01/07/2021 12:00:00 AM EDT eCW1 ([facility]) [place] [address] [facility] [address] 01/07/2021 12:00:00 AM EDT eCW1 ([facility]) Out[place] [address] [facility] [place] [address] 11/10/2020 12:00:00 AM EST eCW1 ([facility]) [place] [address] [facility] [address] 11/10/2020 12:00:00 AM EST eCW1 ([facility]) [place] [address] [facility] [address] 11/10/2020 12:00:00 AM EST eCW1 ([facility]) (WC PROC) [facility] Procedure [address] [place] [address] 09/22/2020 12:00:00 AM EST eCW1 ([facility]) Unknown [address] [facility] [place] [address] 09/22/2020 12:00:00 AM EST eCW1 ([facility]) Unknown [address] [facility] [place] [address] 08/29/2020 12:00:00 AM EST eCW1 ([facility]) Unknown [address] [facility] [place] [address] 08/26/2020 12:00:00 AM EST eCW1 ([facility]) [place] [address] [facility] [address] 07/31/2020 12:00:00 AM EST eCW1 ([facility]) [place] [address] [facility] [address] 07/15/2020 12:00:00 AM EST eCW1 ([facility]) [place] [address] [facility] [address] 07/14/2020 12:00:00 AM EST eCW1 ([facility]) [place] [address] [facility] [address] 07/11/2020 12:00:00 AM EDT eCW1 ([facility]) [place] [address] [facility] [address] 07/07/2020 12:00:00 AM EDT eCW1 ([facility]) [place] [address] [facility] [address] 06/30/2020 12:00:00 AM EDT eCW1 ([facility]) Immunizations Vaccine Date Status Description Data Source(s) Tdap 07/07/2021 12:05:00 PM EDT completed e CW1 ([facility]) Tdap 07/07/2021 12:05:00 PM EDT completed e CW1 ([facility]) Tdap 07/07/2021 12:05:00 PM EDT completed e CW1 ([facility]) Tdap 07/07/2021 12:05:00 PM EDT completed e CW1 ([facility]) Tdap 07/07/2021 12:05:00 PM EDT completed e CW1 ([facility]) Tdap 07/07/2021 12:05:00 PM EDT completed e CW1 ([facility]) Medications Medication Brand Name Start Date Product Form Dose Route Admi nistrative Instructions Pharmacy Instructions Status Indications Reaction Description Data Source(s) Labetalol hydrochloride 200 MG Oral Tablet Labetalol H Cl 200 MG Labetalol HCl 200 MG 08/13/2021 12:00:00 AM EST 1.0 {tablet} activ e Labetalol HCl 200 MG eCW1 ([facility]) Labetalol hydrochloride 200 MG Oral Tablet Labetalol H Cl 200 MG Labetalol HCl 200 MG 08/13/2021 12:00:00 AM EST 1.0 {tablet} activ e Labetalol HCl 200 MG eCW1 ([facility]) Labetalol hydrochloride 200 MG Oral Tablet Labetalol H Cl 200 MG Labetalol HCl 200 MG 08/13/2021 12:00:00 AM EST 1.0 {tablet} activ e Labetalol HCl 200 MG eCW1 ([facility]) Fluoxetine 10 MG Oral Capsule [Prozac] PROzac 10 MG PROzac 1 0 MG 07/07/2021 12:00:00 AM EDT 1.0 {capsule} active P ROzac 10 MG eCW1 ([facility]) Fluoxetine 10 MG Oral Capsule [Prozac] PROzac 10 MG PROzac 1 0 MG 07/07/2021 12:00:00 AM EDT 1.0 {capsule} active P ROzac 10 MG eCW1 ([facility]) Fluoxetine 10 MG Oral Capsule [Prozac] PROzac 10 MG PROzac 1 0 MG 07/07/2021 12:00:00 AM EDT 1.0 {capsule} active P ROzac 10 MG eCW1 ([facility]) Fluoxetine 10 MG Oral Capsule [Prozac] PROzac 10 MG PROzac 1 0 MG 07/07/2021 12:00:00 AM EDT 1.0 {capsule} active P ROzac 10 MG eCW1 ([facility]) Fluoxetine 10 MG Oral Capsule [Prozac] PROzac 10 MG PROzac 1 0 MG 07/07/2021 12:00:00 AM EDT 1.0 {capsule} active P ROzac 10 MG eCW1 ([facility]) Fluoxetine 10 MG Oral Capsule [Prozac] PROzac 10 MG PROzac 1 0 MG 07/07/2021 12:00:00 AM EDT 1.0 {capsule} active P ROzac 10 MG eCW1 ([facility]) Famotidine 40 MG Oral Tablet [Pepcid] Pepcid 40 MG Pepcid 40 MG 06/23/2021 12:00:00 AM EDT 1.0 {tablet_at_bedtime} active Pepcid 40 MG eCW1 ([facility]) Famotidine 40 MG Oral Tablet [Pepcid] Pepcid 40 MG Pepcid 40 MG 06/23/2021 12:00:00 AM EDT 1.0 {tablet_at_bedtime} active Pepcid 40 MG eCW1 ([facility]) Famotidine 40 MG Oral Tablet [Pepcid] Pepcid 40 MG Pepcid 40 MG 06/23/2021 12:00:00 AM EDT 1.0 {tablet_at_bedtime} active Pepcid 40 MG eCW1 ([facility]) Famotidine 40 MG Oral Tablet [Pepcid] Pepcid 40 MG Pepcid 40 MG 06/23/2021 12:00:00 AM EDT 1.0 {tablet_at_bedtime} active Pepcid 40 MG eCW1 ([facility]) Famotidine 40 MG Oral Tablet [Pepcid] Pepcid 40 MG Pepcid 40 MG 06/23/2021 12:00:00 AM EDT 1.0 {tablet_at_bedtime} active Pepcid 40 MG eCW1 ([facility]) Famotidine 40 MG Oral Tablet [Pepcid] Pepcid 40 MG Pepcid 40 MG 06/23/2021 12:00:00 AM EDT 1.0 {tablet_at_bedtime} active Pepcid 40 MG eCW1 ([facility]) Famotidine 40 MG Oral Tablet [Pepcid] Pepcid 40 MG Pepcid 40 MG 06/23/2021 12:00:00 AM EDT 1.0 {tablet_at_bedtime} active Pepcid 40 MG eCW1 ([facility]) Famotidine 40 MG Oral Tablet [Pepcid] Pepcid 40 MG Pepcid 40 MG 06/23/2021 12:00:00 AM EDT 1.0 {tablet_at_bedtime} active Pepcid 40 MG eCW1 ([facility]) Labetalol hydrochloride 100 MG Oral Tablet Labetalol H Cl 100 MG Labetalol HCl 100 MG 06/10/2021 12:00:00 AM EDT 1.0 {tablet} activ e Labetalol HCl 100 MG eCW1 ([facility]) Labetalol hydrochloride 100 MG Oral Tablet Labetalol H Cl 100 MG Labetalol HCl 100 MG 06/10/2021 12:00:00 AM EDT 1.0 {tablet} activ e Labetalol HCl 100 MG eCW1 ([facility]) Ondansetron 4 MG Disintegrating Oral Tablet Ondansetron 4 MG 06/10/2021 12:00:00 AM EDT 1.0 {tablet_on_the_tongue_and_allow_to_dissolve} active Ondansetron 4 MG eCW1 ([facility]) Labetalol hydrochloride 100 MG Oral Tablet Labetalol H Cl 100 MG Labetalol HCl 100 MG 06/10/2021 12:00:00 AM EDT 1.0 {tablet} activ e Labetalol HCl 100 MG eCW1 ([facility]) Labetalol hydrochloride 200 MG Oral Tablet Labetalol H Cl 200 MG Labetalol HCl 200 MG 06/10/2021 12:00:00 AM EDT 1.0 {tablet} suspe nded Labetalol HCl 200 MG eCW1 ([facility]) Labetalol hydrochloride 200 MG Oral Tablet Labetalol H Cl 200 MG Labetalol HCl 200 MG 06/10/2021 12:00:00 AM EDT 1.0 {tablet} suspe nded Labetalol HCl 200 MG eCW1 ([facility]) Labetalol hydrochloride 100 MG Oral Tablet Labetalol H Cl 100 MG Labetalol HCl 100 MG 06/10/2021 12:00:00 AM EDT 1.0 {tablet} activ e Labetalol HCl 100 MG eCW1 ([facility]) Labetalol hydrochloride 100 MG Oral Tablet Labetalol H Cl 100 MG Labetalol HCl 100 MG 06/10/2021 12:00:00 AM EDT 1.0 {tablet} activ e Labetalol HCl 100 MG eCW1 ([facility]) Ondansetron 4 MG Disintegrating Oral Tablet Ondansetron 4 MG 06/10/2021 12:00:00 AM EDT 1.0 {tablet_on_the_tongue_and_allow_to_dissolve} active Ondansetron 4 MG eCW1 ([facility]) Ondansetron 4 MG Disintegrating Oral Tablet Ondansetron 4 MG 06/10/2021 12:00:00 AM EDT 1.0 {tablet_on_the_tongue_and_allow_to_dissolve} active Ondansetron 4 MG eCW1 ([facility]) Ondansetron 4 MG Disintegrating Oral Tablet Ondansetron 4 MG 06/10/2021 12:00:00 AM EDT 1.0 {tablet_on_the_tongue_and_allow_to_dissolve} active Ondansetron 4 MG eCW1 ([facility]) Ondansetron 4 MG Disintegrating Oral Tablet Ondansetron 4 MG 06/10/2021 12:00:00 AM EDT 1.0 {tablet_on_the_tongue_and_allow_to_dissolve} active Ondansetron 4 MG eCW1 ([facility]) Ondansetron 4 MG Disintegrating Oral Tablet Ondansetron 4 MG 06/10/2021 12:00:00 AM EDT 1.0 {tablet_on_the_tongue_and_allow_to_dissolve} active Ondansetron 4 MG eCW1 ([facility]) Ondansetron 4 MG Disintegrating Oral Tablet Ondansetron 4 MG 06/10/2021 12:00:00 AM EDT 1.0 {tablet_on_the_tongue_and_allow_to_dissolve} active Ondansetron 4 MG eCW1 ([facility]) Ondansetron 4 MG Disintegrating Oral Tablet Ondansetron 4 MG 06/10/2021 12:00:00 AM EDT 1.0 {tablet_on_the_tongue_and_allow_to_dissolve} active Ondansetron 4 MG eCW1 ([facility]) Labetalol hydrochloride 200 MG Oral Tablet Labetalol H Cl 200 MG Labetalol HCl 200 MG 06/10/2021 12:00:00 AM EDT 1.0 {tablet} suspe nded Labetalol HCl 200 MG eCW1 ([facility]) Labetalol hydrochloride 100 MG Oral Tablet Labetalol H Cl 100 MG Labetalol HCl 100 MG 06/10/2021 12:00:00 AM EDT 1.0 {tablet} activ e Labetalol HCl 100 MG eCW1 ([facility]) Ondansetron 4 MG Disintegrating Oral Tablet Ondansetron 4 MG 06/10/2021 12:00:00 AM EDT 1.0 {tablet_on_the_tongue_and_allow_to_dissolve} active Ondansetron 4 MG eCW1 ([facility]) Aspirin 81 MG Delayed Release Oral Tablet Aspirin 81 MG 04/22/2021 12:00:00 AM EDT 1.0 {tablet} active Aspirin 81 MG eCW1 ([facility]) Aspirin 81 MG Delayed Release Oral Tablet Aspirin 81 MG 04/22/2021 12:00:00 AM EDT 1.0 {tablet} active Aspirin 81 MG eCW1 ([facility]) Aspirin 81 MG Delayed Release Oral Tablet Aspirin 81 MG 04/22/2021 12:00:00 AM EDT 1.0 {tablet} active Aspirin 81 MG eCW1 ([facility]) Aspirin 81 MG Delayed Release Oral Tablet Aspirin 81 MG 04/22/2021 12:00:00 AM EDT 1.0 {tablet} active Aspirin 81 MG eCW1 ([facility]) Aspirin 81 MG Delayed Release Oral Tablet Aspirin 81 MG 04/22/2021 12:00:00 AM EDT 1.0 {tablet} active Aspirin 81 MG eCW1 ([facility]) Aspirin 81 MG Delayed Release Oral Tablet Aspirin 81 MG 04/22/2021 12:00:00 AM EDT 1.0 {tablet} active Aspirin 81 MG eCW1 ([facility]) Aspirin 81 MG Delayed Release Oral Tablet Aspirin 81 MG 04/22/2021 12:00:00 AM EDT 1.0 {tablet} active Aspirin 81 MG eCW1 ([facility]) Aspirin 81 MG Delayed Release Oral Tablet Aspirin 81 MG 04/22/2021 12:00:00 AM EDT 1.0 {tablet} active Aspirin 81 MG eCW1 ([facility]) Aspirin 81 MG Delayed Release Oral Tablet Aspirin 81 MG 04/22/2021 12:00:00 AM EDT 1.0 {tablet} active Aspirin 81 MG eCW1 ([facility]) Aspirin 81 MG Delayed Release Oral Tablet Aspirin 81 MG 04/22/2021 12:00:00 AM EDT 1.0 {tablet} active Aspirin 81 MG eCW1 ([facility]) Aspirin 81 MG Delayed Release Oral Tablet Aspirin 81 MG 04/22/2021 12:00:00 AM EDT 1.0 {tablet} active Aspirin 81 MG eCW1 ([facility]) Labetalol hydrochloride 100 MG Oral Tablet Labetalol H Cl 100 MG Labetalol HCl 100 MG 02/23/2021 12:00:00 AM EDT 1.0 {tablet} activ e Labetalol HCl 100 MG eCW1 ([facility]) Labetalol hydrochloride 100 MG Oral Tablet Labetalol H Cl 100 MG Labetalol HCl 100 MG 02/23/2021 12:00:00 AM EDT 1.0 {tablet} suspe nded Labetalol HCl 100 MG eCW1 ([facility]) Labetalol hydrochloride 100 MG Oral Tablet Labetalol H Cl 100 MG Labetalol HCl 100 MG 02/23/2021 12:00:00 AM EDT 1.0 {tablet} activ e Labetalol HCl 100 MG eCW1 ([facility]) Labetalol hydrochloride 100 MG Oral Tablet Labetalol H Cl 100 MG Labetalol HCl 100 MG 02/23/2021 12:00:00 AM EDT 1.0 {tablet} activ e Labetalol HCl 100 MG eCW1 ([facility]) Labetalol hydrochloride 100 MG Oral Tablet Labetalol H Cl 100 MG Labetalol HCl 100 MG 02/23/2021 12:00:00 AM EDT 1.0 {tablet} activ e Labetalol HCl 100 MG eCW1 ([facility]) Labetalol hydrochloride 100 MG Oral Tablet Labetalol H Cl 100 MG Labetalol HCl 100 MG 02/23/2021 12:00:00 AM EDT 1.0 {tablet} activ e Labetalol HCl 100 MG eCW1 ([facility]) Labetalol hydrochloride 100 MG Oral Tablet Labetalol H Cl 100 MG Labetalol HCl 100 MG 02/23/2021 12:00:00 AM EDT 1.0 {tablet} activ e Labetalol HCl 100 MG eCW1 ([facility]) Labetalol hydrochloride 100 MG Oral Tablet Labetalol H Cl 100 MG Labetalol HCl 100 MG 02/23/2021 12:00:00 AM EDT 1.0 {tablet} activ e Labetalol HCl 100 MG eCW1 ([facility]) Labetalol hydrochloride 100 MG Oral Tablet Labetalol H Cl 100 MG Labetalol HCl 100 MG 02/23/2021 12:00:00 AM EDT 1.0 {tablet} activ e Labetalol HCl 100 MG eCW1 ([facility]) Labetalol hydrochloride 100 MG Oral Tablet Labetalol H Cl 100 MG Labetalol HCl 100 MG 02/23/2021 12:00:00 AM EDT 1.0 {tablet} activ e Labetalol HCl 100 MG eCW1 ([facility]) Ondansetron 4 MG Oral Tablet [Zofran] Zofran 4 MG Zofran 4 M G 02/16/2021 12:00:00 AM EDT 1.0 {tablet} active Zo cassandra 4 MG eCW1 ([facility]) Ondansetron 4 MG Oral Tablet [Zofran] Zofran 4 MG Zofran 4 M G 02/16/2021 12:00:00 AM EDT 1.0 {tablet} active Zo cassandra 4 MG eCW1 ([facility]) gabapentin 100 MG Oral Capsule Gabapentin 100 MG Gabapentin 100 MG 01/23/2021 12:00:00 AM EDT 1.0 {capsule} active G abapentin 100 MG eCW1 ([facility]) gabapentin 100 MG Oral Capsule Gabapentin 100 MG Gabapentin 100 MG 01/23/2021 12:00:00 AM EDT 1.0 {capsule} active G abapentin 100 MG eCW1 ([facility]) gabapentin 100 MG Oral Capsule Gabapentin 100 MG Gabapentin 100 MG 01/23/2021 12:00:00 AM EDT 1.0 {capsule} active G abapentin 100 MG eCW1 ([facility]) gabapentin 100 MG Oral Capsule Gabapentin 100 MG Gabapentin 100 MG 01/23/2021 12:00:00 AM EDT 1.0 {capsule} active G abapentin 100 MG eCW1 ([facility]) gabapentin 100 MG Oral Capsule Gabapentin 100 MG Gabapentin 100 MG 01/23/2021 12:00:00 AM EDT 1.0 {capsule} active G abapentin 100 MG eCW1 ([facility]) gabapentin 100 MG Oral Capsule Gabapentin 100 MG Gabapentin 100 MG 01/23/2021 12:00:00 AM EDT 1.0 {capsule} active G abapentin 100 MG eCW1 ([facility]) gabapentin 100 MG Oral Capsule Gabapentin 100 MG Gabapentin 100 MG 01/23/2021 12:00:00 AM EDT 1.0 {capsule} active G abapentin 100 MG eCW1 ([facility]) gabapentin 100 MG Oral Capsule Gabapentin 100 MG Gabapentin 100 MG 01/23/2021 12:00:00 AM EDT 1.0 {capsule} active G abapentin 100 MG eCW1 ([facility]) gabapentin 100 MG Oral Capsule Gabapentin 100 MG Gabapentin 100 MG 01/23/2021 12:00:00 AM EDT 1.0 {capsule} active G abapentin 100 MG eCW1 ([facility]) gabapentin 100 MG Oral Capsule Gabapentin 100 MG Gabapentin 100 MG 01/23/2021 12:00:00 AM EDT 1.0 {capsule} active G abapentin 100 MG eCW1 ([facility]) gabapentin 100 MG Oral Capsule Gabapentin 100 MG Gabapentin 100 MG 01/23/2021 12:00:00 AM EDT 1.0 {capsule} active G abapentin 100 MG eCW1 ([facility]) gabapentin 100 MG Oral Capsule Gabapentin 100 MG Gabapentin 100 MG 01/23/2021 12:00:00 AM EDT 1.0 {capsule} active G abapentin 100 MG eCW1 ([facility]) gabapentin 100 MG Oral Capsule Gabapentin 100 MG Gabapentin 100 MG 01/23/2021 12:00:00 AM EDT 1.0 {capsule} active G abapentin 100 MG eCW1 ([facility]) gabapentin 100 MG Oral Capsule Gabapentin 100 MG Gabapentin 100 MG 01/23/2021 12:00:00 AM EDT 1.0 {capsule} active G abapentin 100 MG eCW1 ([facility]) gabapentin 100 MG Oral Capsule Gabapentin 100 MG Gabapentin 100 MG 01/23/2021 12:00:00 AM EDT 1.0 {capsule} active G abapentin 100 MG eCW1 ([facility]) gabapentin 100 MG Oral Capsule Gabapentin 100 MG Gabapentin 100 MG 01/23/2021 12:00:00 AM EDT 1.0 {capsule} active G abapentin 100 MG eCW1 ([facility]) gabapentin 100 MG Oral Capsule Gabapentin 100 MG Gabapentin 100 MG 01/23/2021 12:00:00 AM EDT 1.0 {capsule} active G abapentin 100 MG eCW1 ([facility]) gabapentin 100 MG Oral Capsule Gabapentin 100 MG Gabapentin 100 MG 01/23/2021 12:00:00 AM EDT 1.0 {capsule} active G abapentin 100 MG eCW1 ([facility]) gabapentin 100 MG Oral Capsule Gabapentin 100 MG Gabapentin 100 MG 01/23/2021 12:00:00 AM EDT 1.0 {capsule} active G abapentin 100 MG eCW1 ([facility]) gabapentin 100 MG Oral Capsule Gabapentin 100 MG Gabapentin 100 MG 01/23/2021 12:00:00 AM EDT 1.0 {capsule} active G abapentin 100 MG eCW1 ([facility]) Mupirocin 0.02 MG/MG Topical Ointment Mupirocin 2 % Mupiroci n 2 % 11/10/2020 12:00:00 AM EST 1.0 {application} active Mupirocin 2 % eCW1 ([facility]) Mupirocin 0.02 MG/MG Topical Ointment Mupirocin 2 % Mupiroci n 2 % 11/10/2020 12:00:00 AM EST 1.0 {application} active Mupirocin 2 % eCW1 ([facility]) Mupirocin 0.02 MG/MG Topical Ointment Mupirocin 2 % Mupiroci n 2 % 11/10/2020 12:00:00 AM EST 1.0 {application} active Mupirocin 2 % eCW1 ([facility]) Mupirocin 0.02 MG/MG Topical Ointment Mupirocin 2 % Mupiroci n 2 % 11/10/2020 12:00:00 AM EST 1.0 {application} active Mupirocin 2 % eCW1 ([facility]) Mupirocin 0.02 MG/MG Topical Ointment Mupirocin 2 % Mupiroci n 2 % 11/10/2020 12:00:00 AM EST 1.0 {application} active Mupirocin 2 % eCW1 ([facility]) Mupirocin 0.02 MG/MG Topical Ointment Mupirocin 2 % Mupiroci n 2 % 11/10/2020 12:00:00 AM EST 1.0 {application} active Mupirocin 2 % eCW1 ([facility]) Meclizine Hydrochloride 25 MG Oral Tablet Meclizine HC l 25 MG Meclizine HCl 25 MG 07/14/2020 12:00:00 AM EST 1.0 {tablet_as_needed} active Meclizine HCl 25 MG eCW1 ([facility]) Meclizine Hydrochloride 25 MG Oral Tablet Meclizine HC l 25 MG Meclizine HCl 25 MG 07/14/2020 12:00:00 AM EST 1.0 {tablet_as_needed} active Meclizine HCl 25 MG eCW1 ([facility]) 24 HR Bupropion Hydrochloride 150 MG Ext ended Release Oral Tablet [Wellbutrin] Wellbutrin XL 150 MG Wellbutrin XL 150 MG 07/14/2020 12:00:00 AM EST 1.0 {tablet_in_the_morning} active Wellbutr in XL 150 MG eCW1 ([facility]) Alprazolam 0.25 MG Oral Tablet [Xanax] Xanax 0.25 MG Xanax 0 .25 MG 07/14/2020 12:00:00 AM EST 1.0 {tablet} active Xa nax 0.25 MG eCW1 ([facility]) 24 HR Bupropion Hydrochloride 150 MG Ext ended Release Oral Tablet [Wellbutrin] Wellbutrin XL 150 MG Wellbutrin XL 150 MG 07/14/2020 12:00:00 AM EST 1.0 {tablet_in_the_morning} active Wellbutr in XL 150 MG eCW1 ([facility]) Meclizine Hydrochloride 25 MG Oral Tablet Meclizine HC l 25 MG Meclizine HCl 25 MG 07/14/2020 12:00:00 AM EST 1.0 {tablet_as_needed} active Meclizine HCl 25 MG eCW1 ([facility]) 24 HR Bupropion Hydrochloride 150 MG Ext ended Release Oral Tablet [Wellbutrin] Wellbutrin XL 150 MG Wellbutrin XL 150 MG 07/14/2020 12:00:00 AM EST 1.0 {tablet_in_the_morning} active Wellbutr in XL 150 MG eCW1 ([facility]) 24 HR Bupropion Hydrochloride 150 MG Ext ended Release Oral Tablet [Wellbutrin] Wellbutrin XL 150 MG Wellbutrin XL 150 MG 07/14/2020 12:00:00 AM EST 1.0 {tablet_in_the_morning} active Wellbutr in XL 150 MG eCW1 ([facility]) Meclizine Hydrochloride 25 MG Oral Tablet Meclizine HC l 25 MG Meclizine HCl 25 MG 07/14/2020 12:00:00 AM EST 1.0 {tablet_as_needed} active Meclizine HCl 25 MG eCW1 ([facility]) Alprazolam 0.25 MG Oral Tablet [Xanax] Xanax 0.25 MG Xanax 0 .25 MG 07/14/2020 12:00:00 AM EST 1.0 {tablet} active Xa nax 0.25 MG eCW1 ([facility]) 24 HR Bupropion Hydrochloride 150 MG Ext ended Release Oral Tablet [Wellbutrin] Wellbutrin XL 150 MG Wellbutrin XL 150 MG 07/14/2020 12:00:00 AM EST 1.0 {tablet_in_the_morning} active Wellbutr in XL 150 MG eCW1 ([facility]) Meclizine Hydrochloride 25 MG Oral Tablet Meclizine HC l 25 MG Meclizine HCl 25 MG 07/14/2020 12:00:00 AM EST 1.0 {tablet_as_needed} active Meclizine HCl 25 MG eCW1 ([facility]) Meclizine Hydrochloride 25 MG Oral Tablet Meclizine HC l 25 MG Meclizine HCl 25 MG 07/14/2020 12:00:00 AM EST 1.0 {tablet_as_needed} active Meclizine HCl 25 MG eCW1 ([facility]) Meclizine Hydrochloride 25 MG Oral Tablet Meclizine HC l 25 MG Meclizine HCl 25 MG 07/14/2020 12:00:00 AM EST 1.0 {tablet_as_needed} active Meclizine HCl 25 MG eCW1 ([facility]) 24 HR Bupropion Hydrochloride 150 MG Ext ended Release Oral Tablet [Wellbutrin] Wellbutrin XL 150 MG Wellbutrin XL 150 MG 07/14/2020 12:00:00 AM EST 1.0 {tablet_in_the_morning} active Wellbutr in XL 150 MG eCW1 ([facility]) 24 HR Bupropion Hydrochloride 150 MG Ext ended Release Oral Tablet [Wellbutrin] Wellbutrin XL 150 MG Wellbutrin XL 150 MG 07/14/2020 12:00:00 AM EST 1.0 {tablet_in_the_morning} active Wellbutr in XL 150 MG eCW1 ([facility]) Meclizine Hydrochloride 25 MG Oral Tablet Meclizine HC l 25 MG Meclizine HCl 25 MG 07/14/2020 12:00:00 AM EST 1.0 {tablet_as_needed} active Meclizine HCl 25 MG eCW1 ([facility]) Alprazolam 0.25 MG Oral Tablet [Xanax] Xanax 0.25 MG Xanax 0 .25 MG 07/14/2020 12:00:00 AM EST 1.0 {tablet} suspended Xanax 0.25 MG eCW1 ([facility]) Alprazolam 0.25 MG Oral Tablet [Xanax] Xanax 0.25 MG Xanax 0 .25 MG 07/14/2020 12:00:00 AM EST 1.0 {tablet} suspended Xanax 0.25 MG eCW1 ([facility]) 24 HR Bupropion Hydrochloride 150 MG Ext ended Release Oral Tablet [Wellbutrin] Wellbutrin XL 150 MG Wellbutrin XL 150 MG 07/14/2020 12:00:00 AM EST 1.0 {tablet_in_the_morning} active Wellbutr in XL 150 MG eCW1 ([facility]) Meclizine Hydrochloride 25 MG Oral Tablet Meclizine HC l 25 MG Meclizine HCl 25 MG 07/14/2020 12:00:00 AM EST 1.0 {tablet_as_needed} active Meclizine HCl 25 MG eCW1 ([facility]) Meclizine Hydrochloride 25 MG Oral Tablet Meclizine HC l 25 MG Meclizine HCl 25 MG 07/14/2020 12:00:00 AM EST 1.0 {tablet_as_needed} active Meclizine HCl 25 MG eCW1 ([facility]) 24 HR Bupropion Hydrochloride 150 MG Ext ended Release Oral Tablet [Wellbutrin] Wellbutrin XL 150 MG Wellbutrin XL 150 MG 07/14/2020 12:00:00 AM EST 1.0 {tablet_in_the_morning} active Wellbutr in XL 150 MG eCW1 ([facility]) Meclizine Hydrochloride 25 MG Oral Tablet Meclizine HC l 25 MG Meclizine HCl 25 MG 07/14/2020 12:00:00 AM EST 1.0 {tablet_as_needed} active Meclizine HCl 25 MG eCW1 ([facility]) Meclizine Hydrochloride 25 MG Oral Tablet Meclizine HC l 25 MG Meclizine HCl 25 MG 07/14/2020 12:00:00 AM EST 1.0 {tablet_as_needed} active Meclizine HCl 25 MG eCW1 ([facility]) Alprazolam 0.25 MG Oral Tablet [Xanax] Xanax 0.25 MG Xanax 0 .25 MG 07/14/2020 12:00:00 AM EST 1.0 {tablet} active Xa nax 0.25 MG eCW1 ([facility]) Meclizine Hydrochloride 25 MG Oral Tablet Meclizine HC l 25 MG Meclizine HCl 25 MG 07/14/2020 12:00:00 AM EST 1.0 {tablet_as_needed} active Meclizine HCl 25 MG eCW1 ([facility]) Meclizine Hydrochloride 25 MG Oral Tablet Meclizine HC l 25 MG Meclizine HCl 25 MG 07/14/2020 12:00:00 AM EST 1.0 {tablet_as_needed} active Meclizine HCl 25 MG eCW1 ([facility]) Meclizine Hydrochloride 25 MG Oral Tablet Meclizine HC l 25 MG Meclizine HCl 25 MG 07/14/2020 12:00:00 AM EST 1.0 {tablet_as_needed} active Meclizine HCl 25 MG eCW1 ([facility]) 24 HR Bupropion Hydrochloride 150 MG Ext ended Release Oral Tablet [Wellbutrin] Wellbutrin XL 150 MG Wellbutrin XL 150 MG 07/14/2020 12:00:00 AM EST 1.0 {tablet_in_the_morning} active Wellbutr in XL 150 MG eCW1 ([facility]) Meclizine Hydrochloride 25 MG Oral Tablet Meclizine HC l 25 MG Meclizine HCl 25 MG 07/14/2020 12:00:00 AM EST 1.0 {tablet_as_needed} active Meclizine HCl 25 MG eCW1 ([facility]) Alprazolam 0.25 MG Oral Tablet [Xanax] Xanax 0.25 MG Xanax 0 .25 MG 07/14/2020 12:00:00 AM EST 1.0 {tablet} active Xa nax 0.25 MG eCW1 ([facility]) Meclizine Hydrochloride 25 MG Oral Tablet Meclizine HC l 25 MG Meclizine HCl 25 MG 07/14/2020 12:00:00 AM EST 1.0 {tablet_as_needed} active Meclizine HCl 25 MG eCW1 ([facility]) Alprazolam 0.25 MG Oral Tablet [Xanax] Xanax 0.25 MG Xanax 0 .25 MG 07/14/2020 12:00:00 AM EST 1.0 {tablet} suspended Xanax 0.25 MG eCW1 ([facility]) Alprazolam 0.25 MG Oral Tablet [Xanax] Xanax 0.25 MG Xanax 0 .25 MG 07/14/2020 12:00:00 AM EST 1.0 {tablet} suspended Xanax 0.25 MG eCW1 ([facility]) Meclizine Hydrochloride 25 MG Oral Tablet Meclizine HC l 25 MG Meclizine HCl 25 MG 07/14/2020 12:00:00 AM EST 1.0 {tablet_as_needed} active Meclizine HCl 25 MG eCW1 ([facility]) Alprazolam 0.25 MG Oral Tablet [Xanax] Xanax 0.25 MG Xanax 0 .25 MG 07/14/2020 12:00:00 AM EST 1.0 {tablet} active Xa nax 0.25 MG eCW1 ([facility]) Meclizine Hydrochloride 25 MG Oral Tablet Meclizine HC l 25 MG Meclizine HCl 25 MG 07/14/2020 12:00:00 AM EST 1.0 {tablet_as_needed} active Meclizine HCl 25 MG eCW1 ([facility]) Alprazolam 0.25 MG Oral Tablet [Xanax] Xanax 0.25 MG Xanax 0 .25 MG 07/14/2020 12:00:00 AM EST 1.0 {tablet} active Xa nax 0.25 MG eCW1 ([facility]) Alprazolam 0.25 MG Oral Tablet [Xanax] Xanax 0.25 MG Xanax 0 .25 MG 07/14/2020 12:00:00 AM EST 1.0 {tablet} suspended Xanax 0.25 MG eCW1 ([facility]) Meclizine Hydrochloride 25 MG Oral Tablet Meclizine HC l 25 MG Meclizine HCl 25 MG 07/14/2020 12:00:00 AM EST 1.0 {tablet_as_needed} active Meclizine HCl 25 MG eCW1 ([facility]) Meclizine Hydrochloride 25 MG Oral Tablet Meclizine HC l 25 MG Meclizine HCl 25 MG 07/14/2020 12:00:00 AM EST 1.0 {tablet_as_needed} active Meclizine HCl 25 MG eCW1 ([facility]) Meclizine Hydrochloride 25 MG Oral Tablet Meclizine HC l 25 MG Meclizine HCl 25 MG 07/14/2020 12:00:00 AM EST 1.0 {tablet_as_needed} active Meclizine HCl 25 MG eCW1 ([facility]) Alprazolam 0.25 MG Oral Tablet [Xanax] Xanax 0.25 MG Xanax 0 .25 MG 07/14/2020 12:00:00 AM EST 1.0 {tablet} active Xa nax 0.25 MG eCW1 ([facility]) Meclizine Hydrochloride 25 MG Oral Tablet Meclizine HC l 25 MG Meclizine HCl 25 MG 07/14/2020 12:00:00 AM EST 1.0 {tablet_as_needed} active Meclizine HCl 25 MG eCW1 ([facility]) Meclizine Hydrochloride 25 MG Oral Tablet Meclizine HC l 25 MG Meclizine HCl 25 MG 07/14/2020 12:00:00 AM EST 1.0 {tablet_as_needed} active Meclizine HCl 25 MG eCW1 ([facility]) Meclizine Hydrochloride 25 MG Oral Tablet Meclizine HC l 25 MG Meclizine HCl 25 MG 07/14/2020 12:00:00 AM EST 1.0 {tablet_as_needed} active Meclizine HCl 25 MG eCW1 ([facility]) Meclizine Hydrochloride 25 MG Oral Tablet Meclizine HC l 25 MG Meclizine HCl 25 MG 07/14/2020 12:00:00 AM EST 1.0 {tablet_as_needed} active Meclizine HCl 25 MG eCW1 ([facility]) 24 HR Bupropion Hydrochloride 150 MG Ext ended Release Oral Tablet [Wellbutrin] Wellbutrin XL 150 MG Wellbutrin XL 150 MG 07/14/2020 12:00:00 AM EST 1.0 {tablet_in_the_morning} active Wellbutr in XL 150 MG eCW1 ([facility]) Meclizine Hydrochloride 25 MG Oral Tablet Meclizine HC l 25 MG Meclizine HCl 25 MG 07/14/2020 12:00:00 AM EST 1.0 {tablet_as_needed} active Meclizine HCl 25 MG eCW1 ([facility]) Meclizine Hydrochloride 25 MG Oral Tablet Meclizine HC l 25 MG Meclizine HCl 25 MG 07/14/2020 12:00:00 AM EST 1.0 {tablet_as_needed} active Meclizine HCl 25 MG eCW1 ([facility]) 24 HR Bupropion Hydrochloride 150 MG Ext ended Release Oral Tablet [Wellbutrin] Wellbutrin XL 150 MG Wellbutrin XL 150 MG 07/14/2020 12:00:00 AM EST 1.0 {tablet_in_the_morning} active Wellbutr in XL 150 MG eCW1 ([facility]) Alprazolam 0.25 MG Oral Tablet [Xanax] Xanax 0.25 MG Xanax 0 .25 MG 07/14/2020 12:00:00 AM EST 1.0 {tablet} suspended Xanax 0.25 MG eCW1 ([facility]) Meclizine Hydrochloride 25 MG Oral Tablet Meclizine HC l 25 MG Meclizine HCl 25 MG 07/14/2020 12:00:00 AM EST 1.0 {tablet_as_needed} active Meclizine HCl 25 MG eCW1 ([facility]) Meclizine Hydrochloride 25 MG Oral Tablet Meclizine HC l 25 MG Meclizine HCl 25 MG 07/14/2020 12:00:00 AM EST 1.0 {tablet_as_needed} active Meclizine HCl 25 MG eCW1 ([facility]) 24 HR Bupropion Hydrochloride 150 MG Ext ended Release Oral Tablet [Wellbutrin] Wellbutrin XL 150 MG Wellbutrin XL 150 MG 07/14/2020 12:00:00 AM EST 1.0 {tablet_in_the_morning} active Wellbutr in XL 150 MG eCW1 ([facility]) Meclizine Hydrochloride 25 MG Oral Tablet Meclizine HC l 25 MG Meclizine HCl 25 MG 07/14/2020 12:00:00 AM EST 1.0 {tablet_as_needed} active Meclizine HCl 25 MG eCW1 ([facility]) Meclizine Hydrochloride 25 MG Oral Tablet Meclizine HC l 25 MG Meclizine HCl 25 MG 07/14/2020 12:00:00 AM EST 1.0 {tablet_as_needed} active Meclizine HCl 25 MG eCW1 ([facility]) Insurance Providers Payer name Policy type / Coverage type Policy ID Covered republican ID Covered republican's relationship to raygoza Policy Raygoza Plan Information MEDICAID [id number] SP [id number] [facility] PLAN [id number] SP [id number] [facility] Health Maintenance Organization ([facility]) [id number] Self [phone] [facility] Health Maintenance Organization ([facility]) [id number] Self [id number] [facility] COMMUNITY PLAN [facility] [id number] SP [id number] [facility] COMMUNITY PLAN [facility] [id number] SP [id number] ANSI-Medicaid [id number] [facility]-Medicaid [id number] [facility]-Medicaid [id number] [facility]-Medicaid [id number] ANSI-Medicaid [id number] ANSI-Medicaid [id number] ANSI-Medicaid [id number] ANSI-Medicaid [id number] ANSI-Medicaid [id number] ANSI-Medicaid [id number] ANSI-Medicaid [id number] ANSI-Medicaid [id number] ANSI-Medicaid [id number] ANSI-Medicaid [id number] ANSI-Medicaid [id number] ANSI-Medicaid [id number] ANSI-Medicaid [id number] ANSI-Medicaid [id number] ANSI-Medicaid [id number] ANSI-Medicaid [id number] ANSI-Medicaid [id number] ANSI-Medicaid [id number] ANSI-Medicaid [id number] [facility] PLAN [id number] 18 [id number] [employer] COMMUNITY PLAN MCDHMO [id number] SP [id number] SELF PAY UNAVAILABLE SP UNAVAILA BLE HMO BLUE [id number] SP [id number] HMO BLUE VV SP VV BLUE [facility] -O/P [id number] BLUE [place] PLAN [id number] SP [id number] MEDICAID P [id number] S [id number] MEDICAID -O/P [id number] [employer] COMMUNITY PLAN [facility] [id number] SP [id number] [employer] COMMUNITY PLAN [facility] [id number] SP [id number] [facility] O [id number] S [id number] [facility] [id number] SP [id number] ANSI-Medicaid [id number] ANSI-Medicaid [id number] ANSI-Medicaid [id number] Problems, Conditions, and Diagnoses Code Display Name Description Problem Type Effective Dates Data Source(s) O10.013 78596062 Essential hypertension affecting in third trimester Problem 08/12/2021 12:00:00 AM EST eCW1 ([facility]) O10.012 94997410 Essential hypertension affecting in second trimester Problem 04/21/2021 12:00:00 AM EDT eCW1 ([facility]) O10.919 Benign essential hypertension in obstetr ic context Chronic hypertension affecting Problem 03/24/2021 12:00:00 AM EDT eCW1 ([facility]) Z34.80 care Supervision of other normal P roblem 01/23/2021 12:00:00 AM EDT eCW1 ([facility]) M46.1 [id number] Sacroiliitis Problem 07/31/2020 12:00:00 AM EST eCW1 ([facility]) Surgeries/Procedures Procedure Description Date Indications Data Source(s) TDAP VACCINE 7/> YR IM 07/07/2021 12:00:00 AM EDT eCW1 ([facility]) Results No Information Social History Code Duration Value Status Description Data Source(s ) Smoking 08/14/2021 12:00:00 AM EST Current Smoker completed Curre nt Smoker eCW1 ([facility]) Smoking 08/14/2021 12:00:00 AM EST Current Smoker completed Curre nt Smoker eCW1 ([facility]) Smoking 08/14/2021 12:00:00 AM EST Current Smoker completed Curre nt Smoker eCW1 ([facility]) Smoking 08/03/2021 12:00:00 AM EST Current Smoker completed Curre nt Smoker eCW1 ([facility]) Smoking 07/22/2021 12:00:00 AM EST Current Smoker completed Curre nt Smoker eCW1 ([facility]) Smoking 07/07/2021 12:00:00 AM EDT Current Smoker completed Curre nt Smoker eCW1 ([facility]) Smoking 06/29/2021 12:00:00 AM EDT Current Smoker completed Curre nt Smoker eCW1 ([facility]) Smoking 06/29/2021 12:00:00 AM EDT Current Smoker completed Curre nt Smoker eCW1 ([facility]) Smoking 05/21/2021 12:00:00 AM EDT Current Smoker completed Curre nt Smoker eCW1 ([facility]) Smoking 05/21/2021 12:00:00 AM EDT Current Smoker completed Curre nt Smoker eCW1 ([facility]) Smoking 04/22/2021 12:00:00 AM EDT Current Smoker completed Curre nt Smoker eCW1 ([facility]) Smoking 04/21/2021 12:00:00 AM EDT Current Smoker completed Curre nt Smoker eCW1 ([facility]) Smoking 03/23/2021 12:00:00 AM EDT Current Smoker completed Curre nt Smoker eCW1 ([facility]) Smoking 03/23/2021 12:00:00 AM EDT Current Smoker completed Curre nt Smoker eCW1 ([facility]) Smoking 02/19/2021 12:00:00 AM EDT Current Smoker completed Curre nt Smoker eCW1 ([facility]) Smoking 02/16/2021 12:00:00 AM EDT Current Smoker completed Curre nt Smoker eCW1 ([facility]) Smoking 01/26/2021 12:00:00 AM EDT Current Smoker completed Curre nt Smoker eCW1 ([facility]) Smoking 01/26/2021 12:00:00 AM EDT Current Smoker completed Curre nt Smoker eCW1 ([facility]) Smoking 01/26/2021 12:00:00 AM EDT Current Smoker completed Curre nt Smoker eCW1 ([facility]) Smoking 01/23/2021 12:00:00 AM EDT Current Smoker completed Curre nt Smoker eCW1 ([facility]) Smoking 11/10/2020 12:00:00 AM EST Current Smoker completed Curre nt Smoker eCW1 ([facility]) Smoking 11/10/2020 12:00:00 AM EST Current Smoker completed Curre nt Smoker eCW1 ([facility]) Smoking 11/10/2020 12:00:00 AM EST Current Smoker completed Curre nt Smoker eCW1 ([facility]) Smoking 11/10/2020 12:00:00 AM EST Current Smoker completed Curre nt Smoker eCW1 ([facility]) Smoking 11/10/2020 12:00:00 AM EST Current Smoker completed Curre nt Smoker eCW1 ([facility]) Smoking 09/19/2020 12:00:00 AM EST Current Smoker completed Curre nt Smoker eCW1 ([facility]) Smoking 09/19/2020 12:00:00 AM EST Current Smoker completed Curre nt Smoker eCW1 ([facility]) Smoking 07/31/2020 12:00:00 AM EST Current Smoker completed Curre nt Smoker eCW1 ([facility]) Smoking 07/31/2020 12:00:00 AM EST Current Smoker completed Curre nt Smoker eCW1 ([facility]) Smoking 07/31/2020 12:00:00 AM EST Current Smoker completed Curre nt Smoker eCW1 ([facility]) Smoking 07/31/2020 12:00:00 AM EST Current Smoker completed Curre nt Smoker eCW1 ([facility]) Smoking 07/14/2020 12:00:00 AM EST Current Smoker completed Curre nt Smoker eCW1 ([facility]) Vital Signs ID Date Data Source UNK Name Value Range Interpretation Code Description Data Source(s) Body weight 216 [lb_av] 216 [lb_av] eCW1 ([facility]) Body height 64 [in_i] 64 [in_i] eCW1 ([facility]) Body mass index (BMI) [Ratio] 37.07 kg/m2 37.07 kg/m2 eCW1 ([facility]) Systolic blood pressure 124 mm[Hg] 124 mm[Hg] e CW1 ([facility]) Diastolic blood pressure 70 mm[Hg] 70 mm[Hg] eCW1 ([facility]) Body weight 214 [lb_av] 214 [lb_av] eCW1 ([facility]) Body weight 97.07 kg 97.07 kg eCW1 ([facility]) Body height 64 [in_i] 64 [in_i] eCW1 ([facility]) Body mass index (BMI) [Ratio] 36.733 kg/m2 36.7 33 kg/m2 eCW1 ([facility]) Systolic blood pressure 126 mm[Hg] 126 mm[Hg] e CW1 ([facility]) Diastolic blood pressure 76 mm[Hg] 76 mm[Hg] eCW1 ([facility]) Body weight 212.6 [lb_av] 212.6 [lb_av] [facility] Body height 64 [in_i] 64 [in_i] eCW1 ([facility]) Body mass index (BMI) [Ratio] 36.493 kg/m2 36.4 93 kg/m2 eCW1 ([facility]) Systolic blood pressure 132 mm[Hg] 132 mm[Hg] e CW1 ([facility]) Diastolic blood pressure 82 mm[Hg] 82 mm[Hg] eCW1 ([facility]) Body weight 211.6 [lb_av] 211.6 [lb_av] [facility] Body weight 95.98 kg 95.98 kg eCW1 ([facility]) Body height 64 [in_i] 64 [in_i] eCW1 ([facility]) Body mass index (BMI) [Ratio] 36.321 kg/m2 36.3 21 kg/m2 eCW1 ([facility]) Systolic blood pressure 162 mm[Hg] 162 mm[Hg] e CW1 ([facility]) Diastolic blood pressure 102 mm[Hg] 102 mm[Hg] eCW1 ([facility]) Body weight 211.4 [lb_av] 211.4 [lb_av] [facility] Body height 64 [in_i] 64 [in_i] eCW1 ([facility]) Body mass index (BMI) [Ratio] 36.287 kg/m2 36.2 87 kg/m2 eCW1 ([facility]) Systolic blood pressure 122 mm[Hg] 122 mm[Hg] e CW1 ([facility]) Diastolic blood pressure 76 mm[Hg] 76 mm[Hg] eCW1 ([facility]) Body weight 206.6 [lb_av] 206.6 [lb_av] eCW1 ([facility] Body weight 93.71 kg 93.71 kg eCW1 ([facility]) Body height 64 [in_i] 64 [in_i] eCW1 ([facility]) Body mass index (BMI) [Ratio] 35.463 kg/m2 35.4 63 kg/m2 eCW1 ([facility]) Systolic blood pressure 130 mm[Hg] 130 mm[Hg] e CW1 ([facility]) Diastolic blood pressure 76 mm[Hg] 76 mm[Hg] eCW1 ([facility]) Body weight 196.6 [lb_av] 196.6 [lb_av] [facility] Body weight 89.18 kg 89.18 kg eCW1 ([facility]) Body height 64 [in_i] 64 [in_i] eCW1 ([facility]) Body mass index (BMI) [Ratio] 33.746 kg/m2 33.7 46 kg/m2 eCW1 ([facility]) Systolic blood pressure 130 mm[Hg] 130 mm[Hg] e CW1 ([facility]) Diastolic blood pressure 80 mm[Hg] 80 mm[Hg] eCW1 ([facility]) Body weight 203 [lb_av] 203 [lb_av] eCW1 ([facility]) Body weight 92.08 kg 92.08 kg eCW1 ([facility]) Body height 64 [in_i] 64 [in_i] eCW1 ([facility]) Body mass index (BMI) [Ratio] 34.845 kg/m2 34.8 45 kg/m2 eCW1 ([facility]) Systolic blood pressure 132 mm[Hg] 132 mm[Hg] e CW1 ([facility]) Diastolic blood pressure 84 mm[Hg] 84 mm[Hg] eCW1 ([facility]) Body weight 205.8 [lb_av] 205.8 [lb_av] [facility]CW[facility] Body mass index (BMI) [Ratio] 35.325 kg/m2 35.3 25 kg/m2 eCW1 ([facility]) Body height 64 [in_i] 64 [in_i] eCW1 ([facility]) Body weight 93.35 kg 93.35 kg eCW1 ([facility]) Systolic blood pressure 148 mm[Hg] 148 mm[Hg] e CW1 ([facility]) Diastolic blood pressure 96 mm[Hg] 96 mm[Hg] eCW1 ([facility]) Body weight 203.8 [lb_av] 203.8 [lb_av] [facility]CW[facility] Body weight 92.44 kg 92.44 kg eCW1 ([facility]) Body height 64 [in_i] 64 [in_i] eCW1 ([facility]) Body mass index (BMI) [Ratio] 34.982 kg/m2 34.9 82 kg/m2 eCW1 ([facility]) Systolic blood pressure 134 mm[Hg] 134 mm[Hg] e CW1 ([facility]) Diastolic blood pressure 88 mm[Hg] 88 mm[Hg] eCW1 ([facility]) Body weight 199 [lb_av] 199 [lb_av] eCW1 ([facility]) Body height 64 [in_i] 64 [in_i] eCW1 ([facility]) Body mass index (BMI) [Ratio] 34.15 kg/m2 34.15 kg/m2 eCW1 ([facility]) Heart rate 95 /min 95 /min eCW1 (Count includes the [facility]) Respiratory rate 18 /min 18 /min eCW1 ([facility]) Body temperature 97.3 [degF] 97.3 [degF] eCW1 ( [facility]) Systolic blood pressure 126 mm[Hg] 126 mm[Hg] e CW1 ([facility]) Diastolic blood pressure 82 mm[Hg] 82 mm[Hg] eCW1 ([facility]) Body weight 194 [lb_av] 194 [lb_av] eCW1 ([facility]) Body height 64 [in_i] 64 [in_i] eCW1 ([facility]) Body mass index (BMI) [Ratio] 33.3 kg/m2 33.3 k g/m2 eCW1 ([facility]) Systolic blood pressure 170 mm[Hg] 170 mm[Hg] e CW1 ([facility]) Diastolic blood pressure 110 mm[Hg] 110 mm[Hg] eCW1 ([facility]) Body weight 194.2 [lb_av] 194.2 [lb_av] [facility]CW[facility] Body height 64 [in_i] 64 [in_i] eCW1 ([facility]) Body mass index (BMI) [Ratio] 33.33 kg/m2 33.33 kg/m2 eCW1 ([facility]) Heart rate 96 /min 96 /min eCW1 (Count includes the [facility]) Respiratory rate 18 /min 18 /min eCW1 ([facility]) Body temperature 95.0 [degF] 95.0 [degF] eCW1 ( [facility]) Systolic blood pressure 162 mm[Hg] 162 mm[Hg] e CW1 ([facility]) Diastolic blood pressure 97 mm[Hg] 97 mm[Hg] eCW1 ([facility]) Body weight 186 [lb_av] 186 [lb_av] eCW1 ([facility]) Body height 64 [in_i] 64 [in_i] eCW1 ([facility]) Body mass index (BMI) [Ratio] 31.92 kg/m2 31.92 kg/m2 eCW1 ([facility]) Heart rate 108 /min 108 /min eCW1 (Count includes the [facility]) Respiratory rate 18 /min 18 /min eCW1 ([facility]) Body temperature 97.6 [degF] 97.6 [degF] eCW1 ( [facility]) Systolic blood pressure 150 mm[Hg] 150 mm[Hg] e CW1 ([facility]) Diastolic blood pressure 98 mm[Hg] 98 mm[Hg] eCW1 ([facility]) Patient Treatment Plan of Care Planned Activity Planned Date Details Description Data Source (s) Fluoxetine 10 MG Oral Capsule [Prozac] 07/07/2021 12:00:00 AM EDT eCW1 ([facility]) Famotidine 40 MG Oral Tablet [Pepcid] 06/23/2021 12:00:00 AM EDT eCW1 ([facility]) Famotidine 40 MG Oral Tablet [Pepcid] 06/23/2021 12:00:00 AM EDT eCW1 ([facility]) Labetalol hydrochloride 100 MG Oral Tablet 06/10/2021 12:00:00 AM E DT eCW1 ([facility]) Ondansetron 4 MG Disintegrating Oral Tablet 06/10/2021 12:00:00 AM EDT eCW1 ([facility]) Aspirin 81 MG Delayed Release Oral Tablet 04/22/2021 12:00:00 AM ED T eCW1 ([facility]) Labetalol hydrochloride 100 MG Oral Tablet 02/23/2021 12:00:00 AM E DT eCW1 ([facility]) Labetalol hydrochloride 100 MG Oral Tablet 02/23/2021 12:00:00 AM E DT eCW1 ([facility]) Ondansetron 4 MG Oral Tablet [Zofran] 02/16/2021 12:00:00 AM EDT eCW1 ([facility]) gabapentin 100 MG Oral Capsule 01/23/2021 12:00:00 AM EDT eCW1 ([facility]) gabapentin 100 MG Oral Capsule 01/23/2021 12:00:00 AM EDT eCW1 ([facility]) gabapentin 100 MG Oral Capsule 01/23/2021 12:00:00 AM EDT eCW1 ([facility]) gabapentin 100 MG Oral Capsule 01/23/2021 12:00:00 AM EDT eCW1 ([facility]) gabapentin 100 MG Oral Capsule 01/23/2021 12:00:00 AM EDT eCW1 ([facility]) gabapentin 100 MG Oral Capsule 01/23/2021 12:00:00 AM EDT eCW1 ([facility]) gabapentin 100 MG Oral Capsule 01/23/2021 12:00:00 AM EDT eCW1 ([facility]) Mupirocin 0.02 MG/MG Topical Ointment 11/10/2020 12:00:00 AM EST eCW1 ([facility]) Mupirocin 0.02 MG/MG Topical Ointment 11/10/2020 12:00:00 AM EST eCW1 ([facility]) Mupirocin 0.02 MG/MG Topical Ointment 11/10/2020 12:00:00 AM EST eCW1 ([facility]) Mupirocin 0.02 MG/MG Topical Ointment 11/10/2020 12:00:00 AM EST eCW1 ([facility]) Mupirocin 0.02 MG/MG Topical Ointment 11/10/2020 12:00:00 AM EST eCW1 ([facility]) Mupirocin 0.02 MG/MG Topical Ointment 11/10/2020 12:00:00 AM EST eCW1 ([facility]) Meclizine Hydrochloride 25 MG Oral Tablet 07/14/2020 12:00:00 AM ES T eCW1 ([facility]) Meclizine Hydrochloride 25 MG Oral Tablet 07/14/2020 12:00:00 AM ES T eCW1 ([facility]) Meclizine Hydrochloride 25 MG Oral Tablet 07/14/2020 12:00:00 AM ES T eCW1 ([facility]) 24 HR Bupropion Hydrochloride 150 MG Extended Release Oral Tablet [Wellbutrin] 07/14/2020 12:00:00 AM EST eCW1 ([facility]) 24 HR Bupropion Hydrochloride 150 MG Extended Release Oral Tablet [Wellbutrin] 07/14/2020 12:00:00 AM EST eCW1 ([facility]) Meclizine Hydrochloride 25 MG Oral Tablet 07/14/2020 12:00:00 AM ES T eCW1 ([facility]) Alprazolam 0.25 MG Oral Tablet [Xanax] 07/14/2020 12:00:00 AM EST eCW1 ([facility]) 24 HR Bupropion Hydrochloride 150 MG Extended Release Oral Tablet [Wellbutrin] 07/14/2020 12:00:00 AM EST eCW1 ([facility]) Meclizine Hydrochloride 25 MG Oral Tablet 07/14/2020 12:00:00 AM ES T eCW1 ([facility])
--- OUTSIDE RECORDS SUMMARY | 2021-08-22 17:00 | CCD ---
Author Author [facility] Organization [facility] Address Unknown Phone Unavailable Care Team Providers Care Slicing Machine Tender Name Role Phone Hallie Butler Unavailable PROBLEMS Type Condition ICD9-CM Code [id number] Code Onset Dates Condition S tatus W/U Status Risk SNOMED Code Notes Problem Depression with anxiety F41.8 Active confirmed 268613854 Problem Smoker unmotivated to quit F17.200 Active confirmed 310912601 Problem Polyarthropathy M13.0 Active confirmed 3618 6002 Problem Essential hypertension I10 Active confirmed 79044903 Problem Neurotic excoriations L98.1 Active confirmed 34807960 Problem Acne vulgaris L70.0 Active confirmed 470716 00 Problem Skin-picking disorder F42.4 Active confirmed 727510467 Problem Depression, unspecified depression type F32.9 Active confirmed 85576506 Problem Anxiety disorder, unspecified F41.9 Active confirm ed 756352269 Problem Panic attacks F41.0 Active confirmed 542434 000 Problem Lumbago with sciatica, left side M54.42 Active confirmed 304551454 Problem Chronic hypertension affecting O10.919 Active confirmed 81281079 Problem Migraine with aura and without status migrainosu s, not intractable G43.109 Active confirmed 1647403 Problem Essential hypertension affecting in se cond trimester O10.012 Active confirmed 79356067 Problem Nicotine dependence, cigarettes, uncomplicated F17 .210 Active confirmed 75547369 Problem Lumbago with sciatica, right side M54.41 Active confirmed 404807766781303 Problem Other chronic pain G89.29 Active confirmed 8 8960486 Problem Sacroiliitis M46.1 Active confirmed 1461276 9 Problem Supervision of other normal Z34.80 Ac tive confirm 529115256 ALLERGIES Allergen (clinical drug ingredient) Drug/Non Drug Allergy do cumented on EMR Reaction Allergy Type Onset Date Status Pollen Pollen Unknown Drug Allergy Active ENCOUNTERS from 1989 to 2021-06-29 Encounter Location Date Provider Diagnosis [facility] Luis [address] [phone] [place] [address] Jun, Hallie Yosourav IMMUNIZATIONS Vaccine Route Administration Date Status Pneumococcal [...] Kyrgyz Restorationist: Question Answer Notes Restorationist No adventist beliefs that would impact health care. Drug [...] Counseled the patient on smoking cessation, education [facility] ed 06/23/2021 REASON FOR REFERRAL No Information VITAL SIGNS No information MEDICATIONS Medication SIG (Take, Route, Frequency, Duration) Notes Start Da te End Date Status Meclizine HCl 25 MG 1 tablet as needed Orally Once a day for 30 day(s) Jul, Active Pepcid 40 MG 1 tablet at bedtime Orally Once a day for 30 day(s) Jun, Active Labetalol HCl 100 MG 1 tablet Orally Twice a day for 30 day(s) Feb, Active Gabapentin 100 MG 1 capsule Orally three times daily for 30 Days January, Active fluvoxaMINE Maleate 100 MG 1 tablet at bedtime Orally twice aaron y for 30 Days Not-Taking Labetalol HCl 100 MG 1 tablet Orally Twice a day for 30 day(s) May, Active 27-1 MG 1 tablet Orally Once [...] needed Inhalation travon ry 6 hrs Active PROCEDURES No Information RESULTS No Results REASON FOR VISIT Refill - Gabapentin MEDICAL (GENERAL) HISTORY Type Description Date Medical [...] Medication Name Sig Start Date Stop Date Gabapentin 100 MG 1 capsule Orally three times daily for 30 Days January, Pepcid 40 MG 1 tablet at bedtime Orally Once a day for 30 day (s) Jun, Next Appt Details Provider Name:Jarod Maloney, 2021-07-07 1 1:00:00 AM, [address] [place] [address] , [place], [address], Provider Name:Hallie Butler, 01-11 10:15:00 AM, [address] [place] [address] , [place], [address], Insurance Providers Payer Name Payer Address Payer Phone Insured Name Patient Relati onship to Insured Coverage Start Date Coverage End Date [facility] COMMUN[employer] PLAN [facility] [address] [facility] [phone] RAYRAY CAMPO
--- OUTSIDE RECORDS SUMMARY | 2021-08-22 17:00 | CCD ---
Author Author [facility] Organization [facility] Address Unknown Phone Unavailable Care Team Providers Care Foam Caster Name Role Phone Luis Jean Unavailable PROBLEMS Type Condition ICD9-CM Code [id number] Code Onset Dates Condition S tatus W/U Status Risk SNOMED Code Notes Problem Depression with anxiety F41.8 Active confirmed 063552936 Problem Smoker unmotivated to quit F17.200 Active confirmed 518635002 Problem Polyarthropathy M13.0 Active confirmed 3618 6002 Problem Essential hypertension I10 Active confirmed 65643245 Problem Neurotic excoriations L98.1 Active confirmed 35200655 Problem Acne vulgaris L70.0 Active confirmed 040239 00 Problem Skin-picking disorder F42.4 Active confirmed 600439901 Problem Depression, unspecified depression type F32.9 Active confirmed 39034570 Problem Anxiety disorder, unspecified F41.9 Active confirm ed 691571541 Problem Panic attacks F41.0 Active confirmed 790929 000 Problem Lumbago with sciatica, left side M54.42 Active confirmed 847808178 Problem Chronic hypertension affecting O10.919 Active confirmed 18268355 Problem Migraine with aura and without status migrainosu s, not intractable G43.109 Active confirmed 4975412 Problem Essential hypertension affecting in se cond trimester O10.012 Active confirmed 19416897 Problem Nicotine dependence, cigarettes, uncomplicated F17 .210 Active confirmed 25625909 Problem Lumbago with sciatica, right side M54.41 Active confirmed 072312350632231 Problem Other chronic pain G89.29 Active confirmed 8 0280793 Problem Sacroiliitis M46.1 Active confirmed 5173356 9 Problem Supervision of other normal Z34.80 Ac tive confirm 235087665 ALLERGIES Allergen (clinical drug ingredient) Drug/Non Drug Allergy do cumented on EMR Reaction Allergy Type Onset Date Status environmental Unknown Non Drug Allergy Activ e ENCOUNTERS from 1989 to 2021-06-01 Encounter Location Date Provider Diagnosis [facility] [address] [facility] [phone] [place] [address] May, Luis Jean Encounter for superv ision of normal in multigravida in second trimester Z34.82 and 23 weeks gestation of Z3A.23 IMMUNIZATIONS Vaccine Route Administration Date Status Pneumococcal [...] Education Language: Question Answer Notes Languages spoken: Cymraes Tenriism: Question Answer Notes Tenriism No orthodoxy beliefs that would impact health care. Drug [...] FOR REFERRAL No Information VITAL SIGNS Weight 206.6 lbs May, Weight-kg 93.71 kg May, Height 64 in May, BMI 35.463 kg/m2 May, Blood pressure systolic 130 mm Hg May, Blood pressure diastolic 76 mm Hg May, MEDICATIONS Medication SIG (Take, Route, Frequency, Duration) Notes Start Da te End Date Status Meclizine HCl 25 MG 1 tablet as needed Orally Once a day for 30 day(s) Jul, Active 27-1 MG 1 tablet Orally Once a day Active Zofran 4 MG 1 tablet Orally every 8 hours as needed for nausea for 15 Active Labetalol HCl 100 MG 1 tablet Orally Twice a day for 30 day(s) Feb, Active Ventolin HFA 108 (90 Base) MCG/ACT 2 puffs as needed Inhalation travon ry 6 hrs Active fluvoxaMINE Maleate 100 MG 1 tablet at bedtime Orally twice aaron y for 30 Days Active busPIRone HCl 10 MG 1 tablet Orally Twice a day as needed for 30 Days January, Active Aspirin 81 MG 1 tablet Orally Once a day for 90 day(s) Apr, Active Gabapentin 100 MG 1 capsule Orally three times daily for 90 days January, Active PROCEDURES No Information RESULTS No Results REASON FOR VISIT 4 WK PN MEDICAL (GENERAL) HISTORY Type Description [...] Notes Treatment Notes Treatm ent Clinical Notes May, Encounter for supervision of normal in multigravida in second trimester (ICD-10 - Z34.82) May, 23 weeks gestation of (ICD-10 - Z3A.23 ) PLAN OF TREATMENT Treatment Notes Test Name Order Date PLZ OBS FOLLOW UP OR REPEAT EACH GES 2021-05-21 CBC - Complete Blood Count 2021-05-21 Type and Screen (D Rh Antibody Screen) 2021-05-21 Glucose Challenge Test 1 Hour 2021-05-21 AB SCREEN (INDIRECT HINA)GEL Antibody Screen 2021-05 RH ONLY RHOGAM 2021-05-21 RHOGAM 2021-05-21 CHLAMYDIA & GC DNA AMPLIFICAT 2021-05-21 Next Appt Details Provider Name:Luis Jean, 2021-06-23 10:30:00 AM, [address] [place] [address], , [place], [address], Provider Name:Hallie Butler, 01-11 10:15:00 AM, [facility] [facility], , [place], [address], Insurance Providers Payer Name Payer Address Payer Phone Insured Name Patient Relati onship to Insured Coverage Start Date Coverage End Date [facility] COMMUN[employer] PLAN [facility] [address] [facility] [address] [phone] RAYRAY CAMPO self
--- OUTSIDE RECORDS SUMMARY | 2021-08-22 17:00 | CCD ---
Author Author [facility] Organization [facility] Address Unknown Phone Unavailable Care Team Providers Care Guest Relations Executive Name Role Phone Tita Robles Unavailable PROBLEMS Type Condition ICD9-CM Code [id number] Code Onset Dates Condition S tatus W/U Status Risk SNOMED Code Notes Problem Essential hypertension I10 Active confirmed 40064602 Problem Depression with anxiety F41.8 Active confirmed 712203343 Problem Acne vulgaris L70.0 Active confirmed 006524 00 Problem Polyarthropathy M13.0 Active confirmed 3618 6002 Problem Depression, unspecified depression type F32.9 Active confirmed 06058075 Problem Neurotic excoriations L98.1 Active confirmed 57990516 Problem Nicotine dependence, cigarettes, uncomplicated F17 .210 Active confirmed 82250383 Problem Skin-picking disorder F42.4 Active confirmed 674936278 Problem Panic attacks F41.0 Active confirmed 883517 000 Problem Lumbago with sciatica, left side M54.42 Active confirmed 151636617 Problem Lumbago with sciatica, right side M54.41 Active confirmed 455219173211423 Problem Essential hypertension affecting in se cond trimester O10.012 Active confirmed 17991847 Problem Anxiety disorder, unspecified F41.9 Active confirm ed 562139145 Problem Essential hypertension affecting in third tr imester O10.013 Active confirmed 68511391 Problem Migraine with aura and without status migrainosu s, not intractable G43.109 Active confirmed 9641835 Problem Smoker unmotivated to quit F17.200 Active confirmed 430926056 Problem Other chronic pain G89.29 Active confirmed 8 8290765 Problem Sacroiliitis M46.1 Active confirmed 9654722 9 Problem Supervision of other normal Z34.80 Ac tive confirm 223585383 Problem Chronic hypertension affecting O10.919 Active confirmed 52852676 ALLERGIES Allergen (clinical drug ingredient) Drug/Non Drug Allergy do cumented on EMR Reaction Allergy Type Onset Date Status Pollen Pollen Unknown Drug Allergy Active ENCOUNTERS from 1989 to 2021-08-14 Encounter Location Date Provider Diagnosis [facility] [address] [facility] [phone] [place] [address] Aug, Tita Robles IMMUNIZATIONS Vaccine Route Administration [...] Education Language: Question Answer Notes Languages spoken: Japanese Restorationist: Question Answer Notes Restorationist No spiritism beliefs that would impact health care. Drug [...] Information RESULTS No Results REASON FOR VISIT NEEDS 1 WK PN APPT MEDICAL (GENERAL) HISTORY Type Description Date Medical [...] OF TREATMENT Next Appt Details Provider Name:Hallie Yosourav, 01-11 10:15:00 AM, [address] [address], , [place], [address], Insurance Providers Payer Name Payer Address Payer Phone Insured Name Patient Relati onship to Insured Coverage Start Date Coverage End Date [facility] COMMUNITY PLAN [facility] [address] [facility] [phone] RAYRAY CAMPO
[2021-08-22 17:57] LABS: HEMATOCRIT 28.6 % (36.0-47.0); HEMOGLOBIN 9.5 g/dl (12.0-15.5); MEAN CORPUSCULAR HEMOGLOBIN 30.5 pg (27.0-33.0); MEAN CORPUSCULAR HGB CONC 33.2 g/dl (32.0-36.5); PLATELET COUNT, AUTOMATED 278 10^3/uL (150-450); RED BLOOD COUNT 3.11 10^6/uL (4.00-5.40); WHITE BLOOD COUNT 12.5 10^3/uL (4.0-10.0)
[2021-08-22] MEDS ORDERED: PEPC40TA12 PO (18:01)
[2021-08-22] MEDS ORDERED: PROZ10CA7 PO (18:01)
[2021-08-22] MEDS ORDERED: PRENTAB9 PO (18:01)
[2021-08-22] MEDS ORDERED: HOME MED LIST COMPLETE! XX SCH (18:05)
[2021-08-22] MEDS ORDERED: OXYTOCIN DRIP 30 UNITS in IV 1 EA IV PRN (18:15)
[2021-08-22] MEDS ORDERED: miSOPROStol 50MCG 1/2 TABLET PO SCH (18:30)
--- NOTE | 2021-08-22 18:33 | HPEPDOC ---
Obstetrical History & Physical General Date of Admission Aug 22, 2021 at 16:57 History of Present Illness 31-year-old presents at 37 weeks 1 day for induction of labor due to chronic hypertension. She is currently on labetalol 100 mg twice a day. course also significant for tobacco use throughout. She reports 4 cigarettes/day Chief Complaint: Induction of labor Information Provided By: Patient Age: 31 : 6 Livin Care Care: Good Care Dating Final EDC: Sep 11, 2021 Final EDC by: 1st trimester (US) EGA at Admission: 37 Past Medical History Past Obstetrical History #1: Type of Delivery: Spontaneous Vaginal Del. Complications: Yes (Intrauterine demise at 20 weeks) Past Obstetrical History #2: Date of Delivery: Nov 08, 2013 Type of Delivery: Spontaneous Vaginal Del. Sex of : Female Past Obstetrical History #3: Date of Delivery: May 10, 2016 Type of Delivery: Spontaneous Vaginal Del. Sex of Infant: Male Complications: No WHEEL MOLDER History: History of STD Past Medical History Surgical History: Appendectomy, Diagnostic laparoscopy, Tonsilectomy Family History Significant Family History: Cancer, COPD, Heart disease Social History Marital Status: Single Psychosocial History: Anxiety * Smoker: current smoker Drugs: marijuana Allergies Coded Allergies: No Known Allergies (Unverified , 08/22/21) Medications Scheduled Buspirone HCl (Buspirone HCl) 10 Mg Tablet, 10 MG PO BID Famotidine (Pepcid) 40 Mg Tablet, 1 TAB PO DAILY Fluoxetine HCl (Prozac) 10 Mg Capsule, 1 CAP PO DAILY Gabapentin (Gabapentin) 100 Mg Capsule, 1 CAP PO TID Labetalol HCl (Labetalol HCl) 100 Mg Tablet, 1 TAB PO BID No.137/Iron/Folic Acd ( Vitamin Tablet) 1 Each Tablet, 1 TAB PO DAILY Scheduled PRN Acetaminophen (Acetaminophen) 500 Mg Tablet, 1,000 MG PO Q6H PRN for PAIN Metoclopramide HCl (Reglan) 10 Mg Tablet, 10 MG PO Q6H PRN for NAUSEA Ondansetron HCl (Ondansetron HCl) 4 Mg Tablet, 1 TAB PO TIDP PRN for NAUSEA OR VOMITING Physical Examination Physical Examination GENERAL: Alert and oriented times three. BREAST: . ABDOMEN: Gravid and non-tender to touch. FETUS: Is vertex (VTX) by sterile vaginal examination (SVE), fetus is vertex (VTX) by Vipul. HEART RATE: Regular rate and rhythm. LUNGS: Clear to auscultation (CTA). Laboratory Data 24H LABS Laboratory Tests 2 08/22/21 17:05: Serology Scanned Report Hepatitis B Testing 08/22/21 17:31: 08/22/21 17:37: Nucleated Red Blood Cells % (auto) 0.0 CBC/BMP Laboratory Tests 08/22/21 17:37 Pertinent Laboratoy Data Blood Type: O+ RBC Antibody Screen: Negative HIV: Negative Hepatitis B: Negative Hepatitis C: Negative Rapid Plasma Reagin: Nonreactive Rubella: Immune Chlamydia/Gonorrhea: Negative Group B Streptococcus: Negative Glucose Tolerance Test: 109 Anatomy Ultrasound Placenta Location: Left Lateral Normal Anatomy: Yes Placenta Previa: No Vaginal Examination Dilation: 1cm Effacement: 70% Station: -3 Cervical Consistency: Medium Cervical Position: Middle Presentation: Cephalic presentation Assessment Variability: Moderate Tocometer Contractions: No Assessment/Plan Assessment 31-year-old G6, P2 at 37 weeks 1 day here for induction of labor Chronic hypertensionstable Reassuring status Plan Admit and orient. Practice Consultant and consent. Diet: Regular. Group B Streptococcus (GBS) negative. Labs and intravenous (IV) per unit protocol. Counseled on Pitocin and induction of labor (IOL). Anticipate normal spontaneous delivery (). C-S as appropriate. NICO SHAH MD. Aug 22, 2021 18:33
[2021-08-22] MEDS ORDERED: LABETALOL 200 MG TAB PO SCH (23:30)
[2021-08-22] MEDS ORDERED: OXYTOCIN DRIP 30 UNITS in IV 1 EA IV SCH ×2 (23:30→23:35)
[2021-08-22] MEDS ORDERED: LR 1,000 ML IV SCH ×2 (23:30→23:35)
[2021-08-22] MEDS ORDERED: LR 1,000 ML IV ONE (23:35)
[2021-08-23] VITALS (45 sets, daily range): BP systolic 117–170; BP diastolic 60–99
[2021-08-23] MEDS ORDERED: FENTANYL 2MCG/ML ROPIVACAINE 0.2% IN 0.9% NACL 100ML IVBAG As Ordered ONE (01:37)
[2021-08-23] MEDS ORDERED: LACTATED RINGER'S 1000 ML IV PRN (02:43)
[2021-08-23] MEDS ORDERED: ePHEDrine SULFATE 25 MG/5 ML(5MG/ML) SYRINGE IV PRN (02:43)
[2021-08-23] MEDS ORDERED: EPIDURAL COMMENT XX SCH (02:43)
[2021-08-23] MEDS ORDERED: FENTANYL/ROPIVACAINE/NACL BAG 100 ML EPIDURAL SCH (02:43)
[2021-08-23] MEDS ORDERED: diphenhydrAMINE 50MG/ML VIAL (J1200) IV PRN (02:43)
[2021-08-23] MEDS ORDERED: REFRIGERATOR IV KEYS XX PRN (02:43)
[2021-08-23] MEDS ORDERED: ONDANSETRON 4MG/2ML VIAL IV PRN (02:43)
[2021-08-23] MEDS ORDERED: EPIDURAL/PCA KEYS XX PRN (02:43)
[2021-08-23] MEDS ORDERED: NALOXONE INJ 0.4MG/1ML VIAL (J2310 PER 1MG) IV PRN (02:43)
[2021-08-23] MEDS ORDERED: IBUPROFEN 600MG TAB PO PRN (06:40)
[2021-08-23] MEDS ORDERED: ACETAMINOPHEN 500 MG TAB PO PRN (06:40)
[2021-08-23] MEDS ORDERED: OXYTOCIN DRIP 30 UNITS in IV 1 EA IV SCH (06:40)
[2021-08-23] MEDS ORDERED: DOCUSATE SODIUM 100MG CAPSULE PO PRN (06:40)
[2021-08-23] MEDS ORDERED: METHYLERGONOVINE MALEATE 0.2 MG TAB PO PRN (06:40)
[2021-08-23] MEDS ORDERED: MEASLES,MUMPS,RUBELLA VACCINE INJ (MMR-II) (90707) SC SCH (06:40)
[2021-08-23] MEDS ORDERED: ANUSOL HC CREAM 30GM TOP PRN (06:40)
[2021-08-23] MEDS ORDERED: ACETAMINOPHEN TAB 650MG DOSE (2X325MG) PO PRN (06:40)
[2021-08-23] MEDS ORDERED: MOM 30ML SUSPENSION UDC PO PRN (06:40)
[2021-08-23] MEDS ORDERED: DIBUCAINE 1% OINTMENT 30GM TOP PRN (06:40)
[2021-08-23] MEDS ORDERED: RHOGAM 300 MCG (1500 IU) INJ (J2790) IM SCH (06:40)
--- NOTE | 2021-08-23 06:47 | DNPDOC ---
[facility] Delivery Note Delivery Note DATE OF DELIVERY: August 23, 2021 TIME OF : 0620 GENDER: Female APGARS: 8 and 9 WEIGHT: 2550 g or 5 pounds 10 ounces LACERATIONS: None ANESTHESIA: Epidural ESTIMATED BLOOD LOSS: 200 ml COUNTS: 5 laparotomy sponges accounted for prior to after delivery. DELIVERY NOTE: On August 23, 2021 Mrs. Maldonado is a 31-year-old 6 now para 3 had a spontaneous vaginal delivery of a liveborn female Apgars 8 and 9 weight was 2550 g of 5 pounds 10 ounces. Head was delivered occiput anterior (OA). There was a double nuchal cord which was manually reduced, followed by delivery of the shoulders and corpus. Infant was handed to mom with a good cry. Cord was clamped times two and was cut by support person under my direction. Placenta was then drained and delivered grossly intact. A premixed bag of 500 mL of normal saline with 30 units of Pitocin was then bolused along with uterine massage until the uterus was firm. On inspection , cervix, vagina, perineum was grossly intact and hemostatic. Mom and baby in recovery on stable condition. Mom is decided to name her daughter Jt Barbour. NICO SHAH MD. Aug 23, 2021 06:47
[2021-08-23] MEDS: LABETALOL 200 MG TAB PO SCH ×2 (08:06→21:08)
[2021-08-23] MEDS: GABAPENTIN 100 MG CAP PO SCH ×3 (08:54→21:05)
[2021-08-23] MEDS: FLUoxetine 10 MG CAP PO SCH (08:54)
[2021-08-23] MEDS ORDERED: LABETALOL 200 MG TAB PO ONE (09:00)
[2021-08-23] MEDS: PRENATAL VITAMINS CHEWABLE TABLET PO SCH (09:00)
[2021-08-23] MEDS: IBUPROFEN 800 MG TAB PO PRN (13:51)
[2021-08-24 03:00] VITALS: BP_SYST 71
[2021-08-24 05:30] VITALS: BP 155/89
[2021-08-24] MEDS: PRENATAL VITAMINS CHEWABLE TABLET PO SCH (08:31)
[2021-08-24] MEDS: LABETALOL 200 MG TAB PO SCH ×2 (08:31→21:30)
[2021-08-24] MEDS: GABAPENTIN 100 MG CAP PO SCH ×3 (08:31→21:30)
[2021-08-24] MEDS: FLUoxetine 10 MG CAP PO SCH (08:31)
[2021-08-24] MEDS: IBUPROFEN 800 MG TAB PO PRN (16:08)
[2021-08-24 18:00] VITALS: BP 146/86
[2021-08-25] MEDS: FLUoxetine 10 MG CAP PO SCH (09:22)
[2021-08-25 09:23] VITALS: BP 151/89
[2021-08-25] MEDS: GABAPENTIN 100 MG CAP PO SCH (09:23)
[2021-08-25] MEDS: LABETALOL 200 MG TAB PO SCH (09:23)
[2021-08-25] MEDS: PRENATAL VITAMINS CHEWABLE TABLET PO SCH (09:23)
[2021-08-25 09:35] VITALS: BP 151/89
== END 2021-08-25 12:50 | disposition home or self-care (01) | DRG 560 ==
LOC: M LDI 16:57 → M OBS 08-23 10:35
PROVIDERS: ADMIT Obstetrics & Gynecology; ATTEND Obstetrics & Gynecology
PROC: 3E033VJ Introduction of Other Hormone into Peripheral Vein, Percutaneous Approach (ICD-10-PCS; 2021-08-22)
PROC: 10E0XZZ Delivery of Products of Conception, External Approach (ICD-10-PCS; principal; 2021-08-23)
DX: O10.02 Pre-existing essential hypertension complicating childbirth (principal); Z3A.37 37 weeks gestation of pregnancy; Z37.0 Single live birth; O99.334 Smoking (tobacco) complicating childbirth; F17.210 Nicotine dependence, cigarettes, uncomplicated; O69.81X0 Labor and delivery complicated by cord around neck, without compression, not applicable or unspecified

== ENCOUNTER → 2023-07-14 | Outpatient (REF) | payer OTHER ==
[~2023-07-14] MED LIST changes: -LABE100T4 PO; +LABE100T6 PO; +PEPC40TA12 PO; +PROZ10CA7 PO
[2023-07-14 16:00] LABS: BASO % 0.5 % (0.0-1.0); EOS # 0.2 10^3/uL (0.0-0.5); EOS % 2.2 % (0.0-3.0); HEMATOCRIT 45.3 % (36.0-47.0); HEMOGLOBIN 14.4 g/dl (12.0-15.5); LYMPH # 3.4 10^3/uL (1.5-5.0); LYMPH % 40.2 % (24.0-44.0); MEAN CORPUSCULAR HEMOGLOBIN 30.1 pg (27.0-33.0); MEAN CORPUSCULAR HGB CONC 31.8 g/dl (32.0-36.5); MEAN CORPUSCULAR VOLUME 94.8 fl (80.0-96.0); MONO # 0.8 10^3/uL (0.0-0.8); MONO % 9.7 % (2.0-8.0); NEUTROPHILS % 47.2 % (36.0-66.0); PLATELET COUNT, AUTOMATED 291 10^3/uL (150-450); RED BLOOD COUNT 4.78 10^6/uL (4.00-5.40); WHITE BLOOD COUNT 8.5 10^3/uL (4.0-10.0)
[2023-07-14 16:13] LABS: HEMOGLOBIN A1c 5.2 % (4.0-6.0)
[2023-07-14 16:34] LABS: ALBUMIN 3.8 G/DL (3.2-5.2); ALKALINE PHOSPHATASE 115 U/L (46-116); ALT/SGPT 15 U/L (7.0-40); AST/SGOT 12 U/L (<34); BILIRUBIN,TOTAL 0.6 MG/DL (0.3-1.2); BLOOD UREA NITROGEN 11 MG/DL (9-23); CALCIUM LEVEL 9.6 MG/DL (8.5-10.1); CARBON DIOXIDE LEVEL 27 MMOL/L (20-31); CHLORIDE LEVEL 106 MMOL/L (98-107); CHOLESTEROL LEVEL 196 MG/DL (<200); CHOLESTEROL RISK RATIO 4.27 (<5); CREATININE FOR GFR 0.72 MG/DL (0.55-1.30); GLOMERULAR FILTRATION RATE > 60.0 (>60); GLUCOSE, FASTING 69 MG/DL (60-100); HDL CHOLESTEROL 45.9 MG/DL (>40); LDL CHOLESTEROL 131.9 MG/DL (<100); NON-HDL-C 150.1 MG/DL; POTASSIUM SERUM 5.2 MMOL/L (3.5-5.1); SODIUM LEVEL 142 MMOL/L (136-145); TRIGLYCERIDES LEVEL 91 MG/DL (<150)
[2023-07-14 16:36] LABS: THYROID STIMULATING HORMONE 1.268 uIU/ML (0.55-4.78)
[2023-07-14 16:40] LABS: TOTAL 25(OH) VITAMIN D 37.8 NG/ML (20.0-100.0)
== END ==
LOC: M LAB REF 12:12
PROVIDERS: ATTEND Nurse Practitioner Family
DX: E66.3 Overweight (principal); R53.83 Other fatigue; Z11.9 Encounter for screening for infectious and parasitic diseases, unspecified

== ENCOUNTER → 2025-01-21 | Outpatient (REF) | payer OTHER ==
[2025-01-21 17:53] LABS: BLOOD UREA NITROGEN 12 MG/DL (9-23); CALCIUM LEVEL 9.1 MG/DL (8.5-10.1); CARBON DIOXIDE LEVEL 30 MMOL/L (20-31); CHLORIDE LEVEL 105 MMOL/L (98-107); CHOLESTEROL LEVEL 158 MG/DL (<200); CHOLESTEROL RISK RATIO 3.14 (<5); CREATININE FOR GFR 0.79 MG/DL (0.55-1.30); GLOMERULAR FILTRATION RATE > 90.0 (>60); GLUCOSE, FASTING 82 MG/DL (60-100); HDL CHOLESTEROL 50.3 MG/DL (>40); LDL CHOLESTEROL 95.9 MG/DL (<100); NON-HDL-C 107.7 MG/DL; POTASSIUM SERUM 4.9 MMOL/L (3.5-5.1); SODIUM LEVEL 141 MMOL/L (136-145); TRIGLYCERIDES LEVEL 59 MG/DL (<150)
[2025-01-21 17:56] LABS: THYROID STIMULATING HORMONE 0.743 uIU/ML (0.55-4.78)
[2025-01-21 18:03] LABS: BASO % 0.4 % (0.0-1.0); EOS # 0.2 10^3/uL (0.0-0.5); EOS % 2.2 % (0.0-3.0); HEMATOCRIT 41.5 % (36.0-47.0); HEMOGLOBIN 13.8 g/dl (12.0-15.5); LYMPH # 2.4 10^3/uL (1.5-5.0); LYMPH % 35.2 % (24.0-44.0); MEAN CORPUSCULAR HEMOGLOBIN 32.4 pg (27.0-33.0); MEAN CORPUSCULAR HGB CONC 33.3 g/dl (32.0-36.5); MEAN CORPUSCULAR VOLUME 97.4 fl (80.0-96.0); MONO # 0.6 10^3/uL (0.0-0.8); MONO % 8.2 % (2.0-8.0); NEUTROPHILS # 3.7 10^3/uL (1.5-8.5); NEUTROPHILS % 53.9 % (36.0-66.0); PLATELET COUNT, AUTOMATED 213 10^3/uL (150-450); RED BLOOD COUNT 4.26 10^6/uL (4.00-5.40); WHITE BLOOD COUNT 6.8 10^3/uL (4.0-10.0)
[2025-01-21 18:46] LABS: HEMOGLOBIN A1c 5.1 % (4.0-6.0)
== END ==
LOC: M LAB REF 17:19
PROVIDERS: ATTEND Nurse Practitioner Family
DX: F41.8 Other specified anxiety disorders (principal); I10 Essential (primary) hypertension; E66.3 Overweight

== ENCOUNTER → 2025-05-01 | Outpatient (REF) | payer OTHER ==
[~2025-05-01] MED LIST changes: +PROZ10CA11 PO; -PROZ10CA7 PO
== END ==
LOC: M SFHCWAGY 10:27
PROVIDERS: ATTEND Student in an Organized Health Care Education/Training Program
DX: Z34.81 Encounter for supervision of other normal pregnancy, first trimester (principal)

== ENCOUNTER → 2025-05-06 | Outpatient (CLI) | payer OTHER ==
[2025-05-06 12:00] LABS: PLATELET COUNT, AUTOMATED 228 10^3/uL (150-450)
[2025-05-06 12:58] LABS: HIV 1&2 SCREEN NEGATIVE (NEGATIVE)
[2025-05-06 13:06] LABS: HEPATITIS C VIRUS ABY INDEX < 0.02 INDEX (<0.8)
[2025-05-06 13:19] LABS: Trichomonas vaginalis (AMP) NOT DETECTED (NEGATIVE)
[2025-05-06 13:42] LABS: GC DNA AMPLIFICATION NEGATIVE (NEGATIVE)
== END ==
LOC: M LAB 10:44
PROVIDERS: ATTEND Obstetrics & Gynecology
DX: Z34.81 Encounter for supervision of other normal pregnancy, first trimester (principal)

== ENCOUNTER → 2025-05-28 | Outpatient (REF) | payer OTHER | LOC: M SFHCWAGY 10:24 | PROVIDERS: ATTEND Obstetrics & Gynecology | DX: Z34.80 Encounter for supervision of other normal pregnancy, unspecified trimester (principal) ==

== ENCOUNTER → 2025-07-19 | Outpatient (CLI) | payer OTHER | LOC: M WHC 12:02 | PROVIDERS: ATTEND Obstetrics & Gynecology | DX: Z34.82 Encounter for supervision of other normal pregnancy, second trimester (principal); Z3A.22 22 weeks gestation of pregnancy ==

== ENCOUNTER → 2025-09-03 | Outpatient (CLI) | payer OTHER ==
[~2025-09-03] MED LIST changes: -LABE100T6 PO; +LABE100T91 PO
== END ==
LOC: M RAD 11:50
PROVIDERS: ATTEND Student in an Organized Health Care Education/Training Program
DX: Z34.82 Encounter for supervision of other normal pregnancy, second trimester (principal); Z3A.26 26 weeks gestation of pregnancy